=== PATIENT | female | born 1945 | race Caucasian/White ===

== ENCOUNTER 2020-03-28 13:21 | Emergency (ER) | payer MEDICARE, SELFPAY ==
[2020-03-28 14:43] VITALS: BP 114/62; PULSE 82; RESP 19; TEMP 36.6; O2SAT 98; BMI 23.3
--- NOTE | 2020-03-28 14:46 | HMH.EDUTC ---
[facility] [place] Disposition Clinical Impression: Low back pain Qualifiers: Chronicity: unspecified Back pain laterality: left Sciatica presence: with sciatica Sciatica laterality: sciatica of left side Qualified Code(s): M54.42 - Lumbago with sciatica, left side Disposition: Home, Self-Care Condition on Discharge: Good Instructions: DI for Chronic Pain -- Adult, DI for Low Back Pain, Low Back Pain, Etodolac Additional Instructions: *Etodolac as prescribed with meal as needed for pain/inflammation *Not additional anti-inflammatory like motrin, aleve, advil with the above amount of Etodolac. You can still take Tylenol every 4 hours as needed if you need something else for pain *Ice 20 minutes every 2 hours for the first 48 hours after the initial injury followed by moist heat every 20 minutes 3-4 times a day to affected area. *Keep this area active, no movement leads to more stiffness, However take it easy and avoid heavy lifting pushing or pulling *Follow up with you family doctor if no improvement for further treatment Return if needed Straight to ER if any life threatening symptoms, loss of control of bowel or bladder Prescriptions: Etodolac [Etodolac 200mg Cap*] 200 mg PO Q8H PRN #9 cap PRN Reason: Moderate Pain Transmission Status: Pending to [id number] Referrals: PCP,No [Primary Care Provider] - Time of Disposition: 15:47 Medical Decision Making - Junior Inquiry Pt receiving controlled substance: No Junior was queried for this patient: No Vital Signs: 03/28/20 14:43 Temperature 97.8 F Temperature Source Oral Pulse Rate [Right Brachial] 82 Respiratory Rate 19 Blood Pressure [Right Arm] 114/62 Blood Pressure Mean [Right Arm] 79 Blood Pressure Source [Right Arm] Automatic Cuff Blood Pressure Position [Right Arm] Sitting 02 Sat by Pulse Oximetry 98 Oxygen Delivery Method Room Air Orders (Tests/Meds): ED MEDICATIONS Discontinued Medications Generic Name Dose Route Start Last Admin Trade Name Freq PRN Reason Stop Dose Admin Methylprednisolone Sodium Succinate 125 mg 03/28/20 15:23 03/28/20 15:27 Methylprednisolone Sod Succ 125mg Vial IM 03/28/20 15:24 125 mg ONCE ONE Administration - Radiology Data #1 Image(s): L-Spine Image Reviewed: Yes I have reviewed radiologist's interpretation Multilevel lumbar spondylosis with scoliosis with mild wedging of L4 which may be slightly greater compared to the previous exam. No obvious retropulsion. [facility] HPI - General Stated complaint: pain in lower lumbar, no accident Time Seen by Provider: 03/28/20 14:50 Mode of Arrival: Ambulatory Source of Information: Patient Limitations: No Limitations Description of Symptoms (Recalled from Triage Doc. by RN): PATIENT C/O PAIN IN LEFT HIP AND LEG SINCE LAST NIGHT. NO KNOWN INJURY HEENT Symptoms (Recalled from RN notes): No Resp Symptoms (Recalled from RN notes): No Skin Symptoms (Recalled from RN notes): No MS Symptoms (Recalled from RN notes): Yes Functional Status (Recalled from RN notes): WNL - History of Present Illness Provider Complaint: Jared states that she has chronic lower back pain States that last night it started moving into her left buttock area and hip States that it was an achy like feeling States that she took tylenol and it didnt help States that today it was still hurting and she wasnt sure if it was her arthritis or not so she come in to get it checked Denies known injury Denies loss of control of bowel and bladder - Related Data Previous Rx's Medication Instructions Recorded Etodolac [Etodolac 200mg Cap*] 200 mg PO Q8H PRN #9 cap 03/28/20 Allergies Allergy/AdvReac Type Severity Reaction Status Date / Time No Known Allergies Allergy Verified 03/28/20 14:46 - Worker's Comp Is this a Worker's Comp case?: No [facility] History - Hepatitis A Screen Drug use history?: No High risk sexual behaviors?: No History of sexually transmitted infection?: No Curr
--- NOTE | 2020-03-28 14:51 | XR_ITS ---
PROCEDURE: XR LUMBAR SPINE 2-3V CLINICAL INDICATION: PAIN Low back pain COMPARISON: CR LS5 LUMBAR SPINE 5 VIEWS from 04/23/2016 FINDINGS: There is mild lumbar scoliosis convex right. Degenerative disc disease is present at L2-L3 L3-L4 L4-5 and L5-S1. There is 3 mm anterolisthesis of L3. There is mild wedging of L4 which may be slightly greater when compared to 04/23/2016 anterior osteophytes are present at multiple levels. Facet arthritic changes are present at the lumbosacral junction. Other findings:None. IMPRESSION: Multilevel lumbar spondylosis with scoliosis with mild wedging of L4 which may be slightly greater compared to the previous exam. No obvious retropulsion. Dictated by: Gaurav Petty MD 03/28/2020 15:36 Gaurav Petty MD in [place] 03/28/2020 15:36
[2020-03-28 15:52] VITALS: BP 114/62; PULSE 82; RESP 19; TEMP 36.6
== END 2020-03-28 15:55 | disposition home or self-care (01) ==
PROVIDERS: Emergency Provider Nurse Practitioner
DX: M54.42 Lumbago with sciatica, left side (principal); E78.5 Hyperlipidemia, unspecified; F17.210 Nicotine dependence, cigarettes, uncomplicated
CPT/HCPCS: G0463; 72100; 96372; 99202

== ENCOUNTER 2020-04-03 15:41 | Emergency (ER) | payer MEDICARE, SELFPAY ==
[2020-04-03 15:43] VITALS: BP 106/57; PULSE 91; RESP 19; TEMP 36.7; O2SAT 97; BMI 23.3
--- NOTE | 2020-04-03 15:51 | HMH.EDGENADL ---
ED Disposition Clinical Impression: Shingles Qualifiers: Herpes zoster complications: without complications Qualified Code(s): B02.9 - Zoster without complications Disposition: Home, Self-Care Condition on Discharge: Good Additional Instructions: Take meds as prescribed. Use Tylenol 3's for pain. Do not operate heavy machinery or drink alcohol while taking Tylenol 3's. Immediate return if worsening pain, spread of rash, vision/hearing changes, systemic signs of illness, or other new concerning symptoms prior to following up with your doctor within several days for recheck. Prescriptions: Acyclovir [Acyclovir 800mg tab] 800 mg PO 5XDAY 7 Days #35 tab Transmission Status: Pending to [id number] Referrals: PCP,No [Primary Care Provider] - - Critical Care Critical Care Time: No Attestation: On 04/03/20, the high probability of a clinically significant, sudden or life threatening deterioration of the following system(s) required my full and direct attention, intervention and personal management. The time I documented below is in addition to time spent performing reported procedures but includes the following listed in this critical care notation. Medical Decision Making - Medical Records Medical records reviewed: Yes: I reviewed the patient's medical records. - Mari Inquiry Pt receiving controlled substance: No Medical Decision Narrative: Patient presents with rash. At this time, rash is blanchable throughout with negative Nikolsky sign. Patient is well-appearing, nontoxic. There is concern for dermatitis versus shingles. No signs of herpes zoster ophthalmicus or otic is on exam. There appears to be just 1 maybe 2 dermatomal distributions noted to patient's left thigh. At this time, patient's HPI does fit with the clinical presentation of shingles. Patient will be placed on acyclovir and be sent home with Tylenol 3 to take for pain. I did try to check patient's MARI score but inquiry unsuccessful. Very low suspicion for any opioid abuse. She will take meds as prescribed and follow-up with her doctor in 24 to 48 hours for recheck. She verbalizes her understanding agrees. She will immediately return if any hearing changes, vision changes, spread of rash, worsening pain, systemic signs of illness, or other new concerning symptoms. Assessment: Shingles Disposition: Home on antivirals with close follow-up General Adult HPI - General Stated complaint: rash left thigh Time Seen by Provider: 04/03/20 15:51 - History of Present Illness HPI narrative: Patient is a 74-year-old healthy female presenting with left thigh pain and rash. Patient states last week she presented to urgent care and was treated with a steroid shot for rash noted to her left thigh. Since then the rash has spread and she states it wraps around her left thigh. She endorses a burning sensation to her skin that has not been relieved when she takes Tylenol and Motrin at home. No facial involvement, vision changes, and hearing impairment. She is otherwise healthy without known allergies. No chest pain, shortness of breath, nausea/vomiting. Again, the pain is a burning, constant pain. - Related Data Previous Rx's Medication Instructions Recorded Etodolac [Etodolac 200mg Cap*] 200 mg PO Q8H PRN #9 cap 03/28/20 Acyclovir [Acyclovir 800mg tab] 800 mg PO 5XDAY 7 Days #35 tab 04/03/20 Allergies Allergy/AdvReac Type Severity Reaction Status Date / Time No Known Allergies Allergy Verified 03/28/20 14:[address] [facility] History - Hepatitis A Screen Attestation statement:: This patient has been screened for Hepatitis A risk factors. - Social History Smoking Status: Current every day smoker Tobacco Type: cigarettes # Packs/Day (cigarettes): 1 Alcohol Intake: never Occupational Status: other ROS Obtained: Yes All systems reviewed & no additional complaints Physical Exam - General General appearance: alert, in no
[2020-04-03 16:20] VITALS: BP 110/87; PULSE 87; RESP 18; TEMP 36.7; O2SAT 100
== END 2020-04-03 16:21 | disposition home or self-care (01) ==
PROVIDERS: Emergency Provider Emergency Medicine
DX: B02.9 Zoster without complications (principal); F17.210 Nicotine dependence, cigarettes, uncomplicated
CPT/HCPCS: 99281

== ENCOUNTER → 2020-04-18 18:04 | Outpatient (CLI) | payer MEDICARE, SELFPAY ==
[2020-04-18 19:30] LABS: Basophils # 0.1 K/mm3 (0-0.2); Basophils % 0.8 % (0.1-2.0); Eosinophils # 0.1 K/mm3 (0.0-0.4); Eosinophils % 1.4 % (0.1-12.0); Hematocrit 48.1 % (37.0-47.0); Hemoglobin 15.9 g/dL (12.2-16.2); Lymphocytes # 2.1 K/mm3 (0.7-4.5); Lymphocytes % 24.2 % (10-50); Mean Corpuscular HGB Conc 33.1 g/dL (31.8-35.4); Mean Corpuscular Hemoglobin 33.2 pg (27.0-31.2); Mean Corpuscular Volume 100.5 fl (81-99); Mean Platelet Volume 9.4 fl (7.4-10.4); Monocytes # 0.5 K/mm3 (0.1-1.0); Monocytes % 5.7 % (1.7-9.3); Neutrophils # 5.9 K/mm3 (1.8-7.8); Platelet Count 525 K/mm3 (142-424); Red Blood Count 4.79 M/mm3 (4.20-5.40); Red Cell Distribution Width 14.1 % (11.5-17.5); White Blood Count 8.7 K/mm3 (4.8-10.8)
[2020-04-18 19:37] LABS: Alanine Aminotransferase 17 U/L (12-78); Albumin Level 4.4 g/dl (3.5-5.0); Albumin/Globulin Ratio 1.3 (1.1-1.8); Alkaline Phosphatase 132 U/L (38-126); Aspartate Amino Transferase 33 U/L (14-36); Bilirubin,Total 0.7 mg/dl (0.2-1.3); Blood Urea Nitrogen 19 mg/dl (7-17); Calcium 9.9 mg/dl (8.4-10.2); Carbon Dioxide 27 mmol/L (22.0-30.0); Chloride 105 mmol/L (98-107); Chol/HDL Ratio 3.9 (1-3.5); Cholesterol 243 mg/dl (140-200); Estimated Glomerular Filt Rate 70 ml/min (>60); GFR (African American) 84 ML/MIN (>60); Globulin 3.5 g/dL (1.3-3.2); Glucose 90 mg/dl (74-100); HDL Cholesterol 63 mg/dl (40-60); Sodium 140 mmol/L (136-145); Total Protein,Serum 7.9 g/dl (6.3-8.2); Triglycerides 117 mg/dl (30-150); VLDL Cholesterol 23 mg/dL (0-40)
[2020-04-18 19:48] LABS: Direct LDL Cholesterol 144.11 mg/dL (100-129)
[2020-04-18 19:55] LABS: T4 (Thyroxine) 7.8 ug/dl (5.53-11.0)
[2020-04-18 19:56] LABS: 25-OH Vitamin D, Total 21.9 ng/mL (30-100)
[2020-04-18 20:08] LABS: Thyroid Stimulating Hormone 1.55 uIU/mL (0.465-4.68)
== END ==
PROVIDERS: Visit Provider Emergency Medicine
DX: E03.9 Hypothyroidism, unspecified (principal); E55.9 Vitamin D deficiency, unspecified; M54.5 Low back pain
CPT/HCPCS: 80053; 80061; 82306; 84436; 84443; 85025

== ENCOUNTER → 2020-04-26 08:15 | Outpatient (CLI) | payer MEDICARE, SELFPAY ==
--- NOTE | 2020-04-26 08:15 | MM_ITS ---
PROCEDURE: MM DIG SCREENING MAMM BI W/CAD Referring Doctor: Yobany Soto Patient Age:74Y CLINICAL INDICATION: Routine breast Cancer Screening the 74-year-old. No hormones. No complaints. Noncontributory family history. COMPARISON: MG DIGMAMMDX MAMMOGRAM DX-ASSET MANAGEMENT COORDINATOR N/C from 04/21/2001 MG DIGMAMMS MAMMOGRAM SCREEN-ASSET MANAGEMENT COORDINATOR N/C from 10/06/2001 MG DMSB DIGITAL MAMM-SCREEN BILATERAL from 08/13/2011 TECHNIQUE: Standard CC and MLO images were obtained. R2 CAD reviewed. Bilateral digital breast tomosynthesis included. FINDINGS: Moderate density breast. No suspicious calcifications. No new suspicious or dominant mass. Mole markers bilaterally. Right and left breast appear stable with no new areas of concern. Bilateral follow-up in 1 year recommended IMPRESSION: Stable bilateral mammogram No new areas of concern, bilateral follow-up 1 year recommended BI-RAD Category: 1 Negative FOLLOW-UP: 1YR 1 Year Follow-up (A letter has been sent to the patient regarding results of the study.) Dictated by: Bon Cates MD 04/27/2020 10:25 Bon Cates MD in [place] 04/27/2020 10:25
== END ==
PROVIDERS: PCP Family Medicine; Visit Provider Emergency Medicine
DX: Z12.31 Encounter for screening mammogram for malignant neoplasm of breast (principal)
CPT/HCPCS: 77063; 77067

== ENCOUNTER 2020-11-22 16:56 | Emergency (ER) | payer MEDICARE, SELFPAY ==
[2020-11-22 18:00] VITALS: BP 129/99; PULSE 66; RESP 20; TEMP 36.7; O2SAT 97; BMI 22.7
[2020-11-22 18:24] LABS: Apearance,Urine Cloudy (Clear); Color,Urine Dark Yellow (Yellow); PH,Urine 5.5 (5.0-8.5); Specific Gravity, Urine 1.025 (1.005-1.030)
[2020-11-22 18:25] LABS: Bilirubin,Urine Negative (Negative); Blood, Urine Trace (Negative); Glucose,Urine (UA) Negative (Negative); Ketones,Urine Negative (Negative); Protein,Urine Negative (Negative); UTC Leukocyte Esterase,Urine 1+ (Negative); UTC Nitrate,Urine Positive (Negative); Urobilinogen,Urine 0.2 EU/dl (0.2)
--- NOTE | 2020-11-22 18:33 | HMH.EDUTC ---
[facility] [place] Clinical Impression: UTI (urinary tract infection) Qualifiers: Urinary tract infection type: site unspecified Hematuria presence: with hematuria Qualified Code(s): N39.0 - Urinary tract infection, site not specified Disposition: Home, Self-Care Condition on Discharge: Good Instructions: Urinary Tract Infection, Low Back Pain, DI for Low Back Pain, DI for Urinary Tract Infection (UTI) Additional Instructions: *Increase fluids. Water not Soda or Tea *Start antibiotic immediately and be sure to take as ordered for the FULL length of time although you should start to see improvement over the next 48 hours *Pyridium as needed Remember this medication will turn your urine [place]. This is normal but it will stain what ever it gets on *You should not use Pyridium for more than 48 hours. If so , follow up with your primary physician to review urine culture and ensure that antibiotic is adequate for infection *Be SURE to follow up anytime for new or worsening symptoms with your family doctor. AND in 48 hours for urine culture results with your family doctor, if you do not have a doctor then you may call back to the [facility] for urine culture results and further treatment. We do recommend that you choose and establish care with a Primary Care Physician. AND follow up with them in 10-14 days to repeat UA to ensure infection is resolved and blood no longer present *Be sure to let your PCP know that we sent urine cultures from the [facility] so they can follow up to ensure that you area the on the correct antibiotic Call your doctor office and make appointment for 48 hours (2 days from today) to follow up and get the results of your urine culture and further treatment Prescriptions: cephALEXin [cephALEXin 500mg capsule*] 500 mg PO BID 7 Days #14 cap Transmission Status: Received by [id number] Phenazopyridine HCl [Pyridium 200mg Tablet] 200 pow PO TID #6 tab Transmission Status: Received by [id number] Referrals: Yobany Soto MD [Primary Care Provider] - As needed Time of Disposition: 18:45 Medical Decision Making - Junior Inquiry Pt receiving controlled substance: No Juinor was queried for this patient: No Vital Signs: 11/22/20 18:00 11/22/20 18:54 Temperature 98.0 F 98.0 F Temperature Source Oral Pulse Rate 66 Pulse Rate [Right Brachial] 66 Respiratory Rate 20 20 Blood Pressure 129/99 H Blood Pressure [Right Arm] 129/99 H Blood Pressure Mean [Right Arm] 109 Blood Pressure Source [Right Arm] Automatic Cuff Blood Pressure Position [Right Arm] Sitting 02 Sat by Pulse Oximetry 97 Oxygen Delivery Method Room Air - Lab Data Lab results reviewed: Yes: I reviewed the patient's lab results. Lab Results 11/22/20 18:09: Urine Color Dark yellow, Urine Appearance Cloudy, Urine pH 5.5, Ur Specific [place] 1.025, Urine Protein Negative, Urine Glucose (UA) Negative, Urine Ketones Negative, Urine Blood Trace, Urine Nitrate Positive A, Urine Bilirubin Negative, Urine Urobilinogen 0.2, Ur Leukocyte Esterase 1+ A Orders (Tests/Meds): ED MEDICATIONS Discontinued Medications Generic Name Dose Route Start Last Admin Trade Name Freq PRN Reason Stop Dose Admin Cephalexin HCl 500 mg 11/22/20 18:45 11/22/20 18:53 Cephalexin 500mg Capsule PO 11/22/20 18:46 500 mg ONCE ONE Administration Protocol ORDERS Category Date Time Status Urine Culture Stat Micro 11/22/20 18:10 Received Medical Decision Narrative: Discussed with patient results of her Urinalysis and recommended Lspine xray and xray of hip patient declined States that she will get treated for the UTI and follow up with Family Doctor if pain in lower back/hip if it does not improve after treatment for the UTI [facility] [place] - General Stated complaint: Right Hip,back, pain Time Seen by Provider: 11/22/20 18:33 Mode of Arrival: Ambulatory Source of Information: Patient Limitations: No Limitations Description of
[2020-11-22 18:54] VITALS: BP 129/99; PULSE 66; RESP 20; TEMP 36.7; O2SAT 97
--- NOTE | 2020-11-24 09:44 | PC.NURSE ---
PATIENT NOTIFIED OF URINE CULTURE RESULTS. PATIENT INFORMED TO STOP CURRENT ANTIBIOTIC AND START THE NEW ONE THAT WAS SENT IN FOR HER AND TO FOLLOW UP WITH PCP. PATIENT VERBALIZED UNDERSTANDING.
== END 2020-11-22 18:57 | disposition home or self-care (01) ==
PROVIDERS: Emergency Provider Nurse Practitioner; PCP Emergency Medicine
DX: N30.00 Acute cystitis without hematuria (principal); E78.5 Hyperlipidemia, unspecified
CPT/HCPCS: G0463; 81003; 87086; 87088; 87186; 99202

== ENCOUNTER → 2020-12-16 14:40 | Outpatient (CLI) | payer MEDICARE, SELFPAY ==
--- NOTE | 2020-12-16 14:40 | CT_ITS ---
PROCEDURE: CT LUNG SCREENING CLINICAL INDICATION: lung cancer screening Current smoker 124 pack year smoking history No prior COMPARISON: CT LSWO CT LUMBAR SPINE W/O CONTRAST from 06/13/2016 CR XR LUMBAR SPINE 2-3V from 03/28/2020 TECHNIQUE: The exam was performed on a GE Light Speed [address] scanner using 2.90 mGy CTDI. A low dose helical CT CHEST was performed on a multi-detector scanner. All CT scans at the facility use one or more dose reduction, viz: automated exposure control, ma/kV adjustment per patient size (including targeted exams where dose is matched to indication, i.e. head), or iterative reconstruction technique. The LDCT was performed in a facility that meets the criteria for the screening program. Data regarding this exam was submitted to ACR which is an approved registry. The order for this exam indicates that it came as a result of a lung cancer screening counseling shard decision-making visit that included all the elements required of such a visit including smoking cessation. The radiologist interpreting this exam meets the CMS criteria for the LDCT lung cancer screening program. The exam is reported using the Lung-RADS classification scale and reported to the ACR registry. NOTE: This study was performed for the specific purposes of lung cancer screening and is not an alternative to diagnostic chest CT. RADIATION DOSE: CTDI vol(CT dose Index-volume) = 2.90mG DLP (Dose Length Product) = 97.68 mGcm FINDINGS: Centrilobular and paraseptal emphysema with scattered areas of scarring. 3 mm nodular opacity right upper lobe inferiorly. No suspicious pulmonary nodules apparent. OTHER FINDINGS: Chronic wedge compression changes of T12 with kyphosis and minimal retropulsion of the posterior superior aspect of T12 by 3 mm. There is aneurysmal dilatation of the ascending aorta at 4.5 cm. Coronary artery calcifications are present. 10 mm nodular opacity left adrenal gland possibly due to an adenoma and probably unchanged from 06/13/2016 IMPRESSION: Lung-RADS Category 2 Benign Appearance or Behavior Follow-up: Continue annual screening with LDCT in 12 months Also noted is a 4.5 cm ascending aortic aneurysm. Dictated by: Gaurav Petty MD 12/20/2020 10:08 Gaurav Petty MD in [place] 12/20/2020 10:08
== END ==
PROVIDERS: PCP Emergency Medicine; Visit Provider Emergency Medicine
DX: Z87.891 Personal history of nicotine dependence (principal); Z12.2 Encounter for screening for malignant neoplasm of respiratory organs
CPT/HCPCS: 71271

== ENCOUNTER → 2021-01-03 09:10 | Outpatient (CLI) | payer MEDICARE, SELFPAY ==
--- NOTE | 2021-01-03 09:10 | XR_ITS ---
PROCEDURE: XR DEXA AXIAL SKELETON CLINICAL HISTORY: fracture in t12 vertebrae COMPARISON: CR BONE3 BONE DENSITOMETRY(HIP:LT SPINE from 01/04/2017 FINDINGS: The right hip BMD is 0.614 with a T-score of -2.7. The left hip BMD is 0.599 with a T-score of -2.8. The lumbar spine BMD is 0.848 with a T-score of -1.8. 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 Based on these results a follow-up exam is recommended in 2 year. Dictated by: Anjelica Mayen 01/03/2021 14:57 Anjelica Mayen in [place] 01/03/2021 14:57
== END ==
PROVIDERS: PCP Emergency Medicine; Visit Provider Emergency Medicine
DX: M81.0 Age-related osteoporosis without current pathological fracture (principal)
CPT/HCPCS: 77080

== ENCOUNTER → 2021-02-03 10:05 | Outpatient (CLI) | payer MEDICARE, SELFPAY ==
--- NOTE | 2021-02-03 | CA_ITS ---
APPROVED REPORT Exam: Pharmacologic Technologist: Yue Otto, Ht: 5 ft 7 in Wt: 142 lbs BSA: 1.75 m2 HR: 65 bpm BP: 123/69 mmHg Medical History Medical History: Hyperlipidemia Medications: Asa,,,,, Lipitor,,,,, FOsAMAX,,,,, Cardiac Risk Factors: Smoking, Hyperlipidemia Stress Test Details Test: LEXISCAN HR Resting HR: 60 bpm Max Heart Rate (APMHR): 143.043216 bpm Max HR Achieved: 87 bpm Target HR (85% APMHR): 121.743696 bpm % of APMHR: 60.84 Recovery HR: 72 bpm BP Resting BP: 123/69 mmHg Max BP: 141/63 mmHg Recovery BP: 133.0/62.0 mmHg ECG Clinical Exercise duration: 03:59 min Highest Stage Achieved: Stress ECG Conclusion LEXISCAN PORTION COMPLETED.PT C/O SHORTNESS OF BREATH DURING PEAK INFUSION RESOLVED IN RECOVERY. NO CP. OCC PVC. OCC PAC. LESS THAN 1.5MM ST DEPRESSION. IMAGES TO FOLLOW. Test Summary REST 06:16 . . 60 . 123/ 69 . . Stage 1 . . . . . . . Myoview Injected Stage 1 01:00 . . 83 . . . . Stage 2 01:00 . . 79 . . . . Stage 3 01:00 . . 77 . 128/ 66 . . Stage 4 00:59 . . 76 . 133/ 67 . Stop exercise at 03:59 RECOVERY 01:00 . . 77 . 129/ 63 . . RECOVERY 02:00 . . 74 . 141/ 63 . . RECOVERY 03:00 . . 68 . 132/ 64 . . RECOVERY 03:54 . . 70 . 133/ 62 . . Electronically signed by : Melvin Ibarra MD 02/05/2021 08:49:44
--- NOTE | 2021-02-03 10:06 | CA_ITS ---
APPROVED REPORT EXAM: Comprehensive 2D, Doppler, and color-flow Echocardiogram Aco Coordinator: Teresa Manzo RVT Ht: 5 ft 7 in Wt: 142lbs BSA: 1.75 BP: 138/74 mmHg Indications: CP,THORAIC AA,CAD,SMOKER,MURMUR,HTN,HLD 2D Dimensions LVOT 1.88 cm (M/F) 1.5-2.5 LA Volume 39.50 mL LA Volume Index 22.70 mL/m2 (M/F) 16-34 M-Mode Dimensions RVDd 2.24 cm (0.9-2.6) LA Diam 4.25 cm (1.9-4.0) LVDd 4.51 cm (3.5-5.7) Ao Diam 2.78 cm (2.0-3.7) LVDs 2.81 cm (3.5-5.7) IVSd 1.14 cm (0.6-1.1) PWd 0.83 cm (0.6-1.1) EF (Teich) 67.90% FS 37.70% EDV (Teich) 92.90 mL TAPSE 1.98 (<1.7) ESV (Teich) 29.80 mL LV Diastology E Decel Time 297.00 (160-240 msec) E/A Ratio 1.0 MED E' 7.80 (< 7 cm/sec) E'/MED E' Ratio 14.50 (>14) LAT E' 10.90 (<10 cm/sec) E/LAT E' Ratio 10.38 (>14) Aortic Valve LVOT Max 96.00 (70-110 cm/s) LVOT VTI 23.55 cm AoV Peak Jeffrey. 160.00 (50-130 cm/s) AI PHT 654.00 ms AO Peak GR. 10.30 mmHg AO Mean GR. 5.30 (<5 mmHg) AO VTI 33.53 (18-25 cm) MAURA (VTI) 1.95 (2.5-4.5 cm2) Mitral Valve MV E Max Jeffrey. 113.00 (40-130 cm/s) MV A Velocity 117.00 (40-130 cm/s) E/A Ratio 0.97 MV Decel. Time 297.00 (160-240 ms) MV PHT 87.00 ms Pulmonary Valve PV Peak Velocity 69.00 (50-150 cm/s) Tricuspid Valve TR P. Velocity 299.00 cm/s RAP Estimate 10.00 mmHg RVSP 45.70 mmHg Left Ventricle Left atrium is mildly enlarged, left ventricle is normal size, mild concentric left ventricular hypertrophy, visually estimated ejection fraction 55% with no regional wall motion abnormality, grade 2 diastolic dysfunction seen with tissue Doppler evidence of raise left atrial pressure. Right Ventricle Right atrium and right ventricle are normal size and contractility. Aortic Valve Aortic valve is thickened and calcified without aortic stenosis, there is mild aortic insufficiency. Mitral Valve Mitral valve leaflets are minimally thickened, there is mild mitral regurgitation. Tricuspid Valve Tricuspid valve grossly normal, there is mild tricuspid regurgitation, tricuspid regurgitation jet velocity is inadequate for calculation of the right ventricular systolic pressure. Pulmonic Valve Pulmonic valve is poorly visualized. Great Vessels Aortic root is normal size. Pericardium No significant pericardial effusion noted. Conclusion 1. Mildly enlarged left atrium, normal left ventricular size, mild concentric left ventricular hypertrophy, visually estimated ejection fraction 55% with no regional wall motion abnormality, grade 2 diastolic dysfunction seen with tissue Doppler evidence of raise left atrial pressure. 2. Mild aortic, mild mitral and tricuspid regurgitation. 3. No significant pericardial effusion noted. Electronically signed by : Melvin Ibarra MD 02/03/2021 12:31:58
--- NOTE | 2021-02-03 11:01 | NM_ITS ---
APPROVED REPORT Exam: Nuclear Stress Test Indication: chest pain Patient Location: Outpatient Stress Tech: Yue BURKS Tech:Danielle Moon JOSEPH RT(R)(N) Ht: 5 ft 7 in Wt: 142 lbs Bra Size: 40c HR: 60 bpm BP: 123/69 mmHg BSA: 1.75 m2 BMI: 22.2 History: chest pain Procedure: Patient received a 0.4 mg of intravenous Lexiscan, resting heart rate 60 bpm, resting blood pressure 123/69 mmHg, with Lexiscan maximum heart rate achived was 87 bpm which is Less than 85 % of the maximum predicted heart rate and blood pressure was 141/63 mmHg. With Lexiscan, patient denied any complaint of chest pain. Electrocardiogram Resting electrocardiogram showed sinus rhythm, with Lexiscan there is less than 1.[address] segment depression from the baseline EKG. The EKG portion of the Lexiscan is nondiagnostic. Cardiac Stress and Resting SPECT Images: Cardiac Stress and Resting SPECT images were obtained using technetium 99m Myoview 31.4 mCi stress and 10.61 mCi at rest. Gated SPECT for analysis of segmental wall motion and calculation of the ejection fraction also done. Prone images were also obtained. Cardiac stress and resting SPECT images show uniform myocardial activity without segmental perfusion abnormality, computer derived ejection fraction is 56% with no regional wall motion abnormality, right ventricle is normal size and contractility. Conclusion: 1. The EKG portion of the Lexiscan is nondiagnostic. 2. No scintigraphic evidence of reversible ischemia seen, computer derived ejection fraction is 56% with no regional wall motion abnormality, right ventricle is normal size and contractility. 3. Normal Lexiscan Myoview study. Electronically signed by : Melvin Ibarra MD 02/05/2021 09:00:08
== END ==
PROVIDERS: PCP Emergency Medicine; Visit Provider Internal Medicine
DX: E78.5 Hyperlipidemia, unspecified (principal); I10 Essential (primary) hypertension; I25.10 Atherosclerotic heart disease of native coronary artery without angina pectoris; I71.2 Thoracic aortic aneurysm, without rupture; Z72.0 Tobacco use
CPT/HCPCS: 78452; 93017; 93306; A9502; J2785

== ENCOUNTER → 2021-02-17 09:56 | Outpatient (CLI) | payer MEDICARE, SELFPAY ==
--- NOTE | 2021-02-17 09:56 | CA_ITS ---
APPROVED REPORT Inspector Of Dredging: ADALID Laterality: Bilateral Study Quality: Good Indications: carotid bruit on exam, coronary artery calcification Risk Factors Hyperlipidemia Smoking Doppler Spectral Velocity Analysis ECA (R) 91.80/14.80 cm/s ECA (L) 122.50/21.40 cm/s dICA (R) 70.00/23.80 cm/s dICA (L) 56.50/19.90 cm/s Selin (R) 57.80/20.50 cm/s Selin (L) 79.00/25.00 cm/s pICA (R) 64.90/19.30 cm/s pICA (L) 64.90/25.00 cm/s dCCA (R) 74.50/24.40 cm/s dCCA (L) 75.80/21.20 cm/s pCCA (R) 70.60/18.60 cm/s pCCA (L) 50.50/14.10 cm/s Vert (R) 34.60/9.00 cm/s Vert (L) 41.70/13.50 cm/s ICA/CCA 0.94 ICA/CCA 1.04 Findings Study suggests less than 20% stenosis of the right interal carotid artery. Study suggets less than 20% stenosis of the left internal carotid artery. Duplex evaluation demonstrates antegrade flow of the bilateral Vertebral Arteries. B-Mode Ultrasound demonstrates mild intraluminal plaque in the bilateral internal Carotid Arteries. Multiple nodules seen in the patient's thyroid. Conclusion Study suggests less than 20% stenosis of the right interal carotid artery. Study suggets less than 20% stenosis of the left internal carotid artery. Duplex evaluation demonstrates antegrade flow of the bilateral Vertebral Arteries. B-Mode Ultrasound demonstrates mild intraluminal plaque in the bilateral internal Carotid Arteries. Multiple nodules seen in the patient's thyroid measuring up to 1.4cm on the left consistent with cysts. Electronically signed by : Gaurav Petty MD 02/21/2021 16:14:53
== END ==
PROVIDERS: PCP Emergency Medicine; Visit Provider Urology
DX: R09.89 Other specified symptoms and signs involving the circulatory and respiratory systems (principal)
CPT/HCPCS: 93880

== ENCOUNTER → 2021-03-30 15:20 | Outpatient (CLI) | payer MEDICARE, SELFPAY ==
--- NOTE | 2021-03-30 15:20 | US_ITS ---
PROCEDURE: US THYROID CLINICAL INDICATION: hx nodules COMPARISON: No exams were available for comparison FINDINGS: Right lobe: 3.8 x 1.4 x 1.7 cm. 8 x 6 mm cyst is present in the upper pole. 3 mm cyst with a hyperechoic focus noted inferiorly noted in the mid polar region. In the lower pole there is a 10 x 5 mm mixed cystic and solid lesion. Also in the lower pole there is a 5 mm cyst. Left lobe: 3.7 x 1.5 x 1.7 cm. 10 mm x 13 mm cyst is present in the upper pole. 2 mm cyst in the lower pole. Isthmus: Unremarkable Additional findings: IMPRESSION: Multiple thyroid cysts as detailed above. There is a mixed cystic and solid lesion in the lower pole on the right at 10 x 5 mm. TR level 3. Suggest 12 month follow-up. Dictated by: Gaurav Petty MD 03/31/2021 07:53 Gaurav Petty MD in [place] 03/31/2021 07:53
== END ==
PROVIDERS: PCP Emergency Medicine; Visit Provider Otolaryngology
DX: E04.1 Nontoxic single thyroid nodule (principal)
CPT/HCPCS: 76536

== ENCOUNTER 2021-05-16 14:51 | Emergency (ER) | payer MEDICARE, SELFPAY ==
--- NOTE | 2021-05-16 15:55 | XR_ITS ---
PROCEDURE INFORMATION: Exam: XR Chest Exam date and time: 05/16/2021 3:55 PM Age: 75 years old Clinical indication: Cough TECHNIQUE: Imaging protocol: XR of the chest. Views: 2 views. COMPARISON: CT LUNG SCREENING 12/16/2020 2:49 PM FINDINGS: Lungs: Emphysematous changes. Faint infiltrate in the mid to upper right lung. Lung hyperinflation. Pleural spaces: Unremarkable. No pleural effusion. No pneumothorax. Heart/Mediastinum: Unremarkable. No cardiomegaly. Bones/joints: Old T12 vertebral body compression deformity. IMPRESSION: Faint right lung infiltrate may represent pneumonia.
--- NOTE | 2021-05-16 16:02 | HMH.EDUTC ---
[facility] [place] Disposition Clinical Impression: COPD exacerbation Disposition: Home, Self-Care Condition on Discharge: Good Instructions: DI for Chronic Obstructive Pulmonary Disease, DI for COVID-19 (Suspected or Confirmed ), Preventing the Spread of Coronavirus Discharge Instructions Additional Instructions: Drink plenty of fluids. Take tylenol or ibuprofen for pain or fever. Take the medications as directed. Follow up with your regular doctor. GO TO THE ER FOR ANY WORSENING SYMPTOMS Quarantine until you know the results of your covid-19 test. If it is positive, the health department should call you and give you further instructions about your length of Quarantine and other things. Notify your school or workplace of your results and follow their instructions regarding return to work/school. Prescriptions: Benzonatate [Benzonatate 100mg cap] 100 mg PO TIDP PRN #30 cap PRN Reason: Cough [facility]: [facility] predniSONE [Deltasone 10mg tablet] 10 mg PO DAILY 9 Days #21 tab Transmission Status: Received by [facility] levoFLOXacin [Levaquin 500mg tab] 500 mg PO DAILY #7 tab Transmission Status: Received by [facility] guaiFENesin [Mucinex 600mg tablet] 1 - 2 tab PO BIDP PRN #30 tab PRN Reason: Congestion Transmission Status: [facility] Referrals: Yobany Soto MD [Primary Care Provider] - Time of Disposition: 17:06 Medical Decision Making - Medical Records Medical records reviewed: No: I reviewed the patient's medical records. - Junior Inquiry Pt receiving controlled substance: No Vital Signs: 05/16/21 16:08 05/16/21 17:15 Temperature 97.8 F 97.8 F Temperature Source Oral Pulse Rate 93 H Pulse Rate [Left] 93 H Respiratory Rate 20 20 Blood Pressure 99/61 L Blood Pressure [Right Arm] 93/55 L Blood Pressure Mean [Right Arm] 67 02 Sat by Pulse Oximetry 92 L - Lab Data Lab results reviewed: Yes: I reviewed the patient's lab results. Lab Results 05/16/21 16:23: Strep Scn Rapid Clinic Negative Orders (Tests/Meds): ORDERS Category Date Time Status Covid-19 Nasal PCR ([facility]) Routine Lab 05/16/21 16:54 Received Strep Screen Confirmation Stat Micro 05/16/21 16:23 Received - Radiology Data #1 Image(s): Chest Image Reviewed: Yes I reviewed the patient's radiology image, Yes I have reviewed radiologist's interpretation Preliminary Findings: Abnormal PROCEDURE INFORMATION: Exam: XR Chest Exam date and time: 05/16/2021 3:55 PM Age: 75 years old Clinical indication: Cough TECHNIQUE: Imaging protocol: XR of the chest. Views: 2 views. COMPARISON: CT LUNG SCREENING 12/16/2020 2:49 PM FINDINGS: Lungs: Emphysematous changes. Faint infiltrate in the mid to upper right lung. Lung hyperinflation. Pleural spaces: Unremarkable. No pleural effusion. No pneumothorax. Heart/Mediastinum: Unremarkable. No cardiomegaly. Bones/joints: Old T12 vertebral body compression deformity. IMPRESSION: Faint right lung infiltrate may represent pneumonia. [facility] [place] HPI - General Stated complaint: chills, body aches Time Seen by Provider: 05/16/21 16:02 - History of Present Illness Provider Complaint: She c/o cough and congestion for the past 2 days. - Related Data Previous Rx's Medication Instructions Recorded aspirin 81 mg tablet,delayed 81 mg PO DAILY #30 tab 01/24/21 release furosemide 20 mg tablet 20 mg PO DAILY #30 tab 02/08/21 losartan 25 mg tablet 25 mg PO DAILY #30 tab 02/08/21 atorvastatin 10 mg tablet See Rx Instructions .ROUTE 05/01/21 .COMPLEX #90 tablet Benzonatate [Benzonatate 100mg 100 mg PO TIDP PRN #30 cap 05/16/21 cap] guaiFENesin [Mucinex 600mg tablet] 1 - 2 tab PO BIDP PRN #30 tab 05/16/21 levoFLOXacin [Levaquin 500mg 500 mg PO DAILY #7 tab 05/16/21 tab] predniSON
[2021-05-16 16:08] VITALS: BP 93/55; PULSE 93; RESP 20; TEMP 36.6; O2SAT 92; BMI 23.2
[2021-05-16 16:26] LABS: UTC Strep Screen (Rapid) Negative (Negative)
[2021-05-16 17:15] VITALS: BP 99/61; PULSE 93; RESP 20; TEMP 36.6
--- NOTE | 2021-05-17 10:44 | PC.NURSE ---
attempted to call pt with covid swab results, no answer and no voicemail set up
--- NOTE | 2021-05-17 12:35 | PC.NURSE ---
attempted to call about positive covid results, unable to reach at this time.
--- NOTE | 2021-05-17 13:07 | INFXCTL.NOTE ---
Notified patient via phone call COVID-19 (+). Instructed to quarantine for 10 days. MARIAM Grant
== END 2021-05-16 17:17 | disposition home or self-care (01) ==
PROVIDERS: Emergency Provider Nurse Practitioner Family; PCP Emergency Medicine
DX: J44.1 Chronic obstructive pulmonary disease with (acute) exacerbation (principal); R01.1 Cardiac murmur, unspecified; I10 Essential (primary) hypertension; F17.210 Nicotine dependence, cigarettes, uncomplicated; U07.1 COVID-19
CPT/HCPCS: G0463; 71046; 87880; 99202; C9803; U0003; U0005

== ENCOUNTER 2021-05-22 23:31 | Inpatient (IN) | payer MEDICARE, SELFPAY ==
[2021-05-22 23:32] VITALS: BP 117/74; PULSE 87; RESP 28; TEMP 36.3; O2SAT 76; BMI 23.2
--- NOTE | 2021-05-22 23:45 | XR_ITS ---
PROCEDURE INFORMATION: Exam: XR Chest Exam date and time: 05/22/2021 11:45 PM Age: 75 years old Clinical indication: Cough and shortness of breath; Patient HX: Covid + 05/16/2021 TECHNIQUE: Imaging protocol: XR of the chest. Views: 1 view. COMPARISON: CR XR CHEST 2V 05/16/2021 4:05 PM FINDINGS: Lungs: Hyperinflation with chronic interstitial coarsening suggesting COPD. Patchy airspace disease present throughout the peripheral right lung is new since recent prior and compatible with pneumonia. Scattered linear scarring. Pleural spaces: No pleural effusion. No pneumothorax. Heart/Mediastinum: Normal heart size. Bones/joints: Osteopenia. Mild spondylosis. Mild levoconvex thoracic curvature. IMPRESSION: 1. Multilobar pneumonia in the peripheral right lung. 2. COPD.
--- NOTE | 2021-05-22 23:48 | HMH.EDGENADL ---
ED Disposition Clinical Impression: COVID-19 Respiratory failure with hypoxia Qualifiers: Chronicity: acute Qualified Code(s): J96.01 - Acute respiratory failure with hypoxia Disposition: Admitted As Inpatient Condition on Discharge: Critical Referrals: Yobany Soto MD [Primary Care Provider] - Time of Disposition: 23:54 - Critical Care Critical Care Time: Yes Attestation: On 05/22/21, the high probability of a clinically significant, sudden or life threatening deterioration of the following system(s) required my full and direct attention, intervention and personal management. The time I documented below is in addition to time spent performing reported procedures but includes the following listed in this critical care notation. Vital system(s) involved:: Respiratory Failure My critical care processes included: Assessment & monitoring of V/S, Initial and Re-exams, Data Review/Interpretation, Coordinating Care, Medication Orders and management, Documentation Medical Decision Making - Medical Records Medical records reviewed: Yes: I reviewed the patient's medical records. - Junior Inquiry Pt receiving controlled substance: No Vital Signs: 05/22/21 23:32 05/23/21 00:00 05/23/21 00:30 Temperature 97.4 F L Temperature Source Oral Pulse Rate 77 75 Pulse Rate [Right] 87 Respiratory Rate 28 H Blood Pressure 112/78 120/74 Blood Pressure [Right Arm] 117/74 Blood Pressure Mean [Right Arm] 88 02 Sat by Pulse Oximetry 76 L 94 L 93 L Oxygen Delivery Method Room Air Nasal Cannula Nasal Cannula Nasal Cannula Oxygen Flow Rate (LPM) 4 4 05/23/21 01:00 05/23/21 01:30 05/23/21 02:00 Temperature Temperature Source Pulse Rate 75 72 71 Pulse Rate [Right] Respiratory Rate Blood Pressure 109/75 L 120/75 124/75 Blood Pressure [Right Arm] Blood Pressure Mean [Right Arm] 02 Sat by Pulse Oximetry 92 L 95 91 L Oxygen Delivery Method Nasal Cannula Nasal Cannula Nasal Cannula Oxygen Flow Rate (LPM) 4 4 4 - Lab Data Lab Results 05/23/21 00:09: WBC 8.4, RBC 4.98, Hgb 15.7, Hct 45.1, MCV 90.7, MCH 31.6 H, MCHC 34.8, RDW 13.3, Plt Count 369, MPV 9.4, Neut % (Auto) 85.6 H, Lymph % (Auto) 8.2 L, [place] % (Auto) 5.0, Eos % (Auto) 0.1, Baso % (Auto) 1.2, Neut # (Auto) 7.1, Lymph # (Auto) 0.7, [place] # (Auto) 0.4, Eos # (Auto) 0.0, Baso # (Auto) 0.1, Total Counted 100, Neutrophils % (Manual) 86 H, Lymphocytes % (Manual) 10, Monocytes % (Manual) 4, Platelet Estimate Normal, RBC Morphology Normal 05/23/21 00:09: D-Dimer 0.95 H 05/23/21 00:09: Sodium 134 L, Potassium 3.7, Chloride 103, Carbon Dioxide 28, Anion Gap 6.7, BUN 17, Creatinine 0.60, Estimated Creat Clear 49, Estimated GFR 97, Est GFR ( Amer) 117, Glucose 226 H, Calcium 8.2 L, Ferritin 504 H, Total Bilirubin 0.8, AST 54 H, ALT 33, Alkaline Phosphatase 88, C-Reactive Protein 59.8 H, Total Protein 6.9, Albumin 3.4 L, Globulin 3.5 H, Albumin/Globulin Ratio 1.0 L, Procalcitonin 0.046 Result diagrams: 05/23/21 00:09 05/23/21 00:09 Orders (Tests/Meds): ED MEDICATIONS Generic Name Dose Route Start Last Admin Trade Name Freq PRN Reason Stop Dose Admin Levofloxacin/Dextrose 750 mg in 150 mls @ 100 mls/hr 05/23/21 02:30 Levofloxacin 750mg/150ml Premix IV 06/06/21 02:29 Q24H WENDY Discontinued Medications Generic Name Dose Route Start Last Admin Trade Name Freq PRN Reason Stop Dose Admin Dexamethasone Sodium Phosphate 8 mg 05/22/21 23:47 05/23/21 00:24 Dexamethasone 4mg/Ml 1ml Vial IV 05/22/21 23:48 8 mg ONCE ONE Administration ORDERS Category Date Time Status CT angio chest PE protocol Stat Cat Scan 05/23/21 02:28 Ordered Lactic Acid Stat Lab 05/22/21 23:45 Ordered Rapid PCR Covid and Flu A/B Stat Lab 05/23/21 00:00 Received Venous Blood Gas Stat RT 05/22/21 23:45 Ordered - Radiology Data #1 Image(s): Chest Image Reviewed: Yes I reviewed the patient's radiology results, Yes I review
[2021-05-23] VITALS (17 sets, daily range): BP systolic 105–127; BP diastolic 63–78; PULSE 67–80; RESP 20–26; TEMP 36.3–36.8; O2SAT 89–96; BMI 23.1
[2021-05-23 00:26] LABS: Basophils # 0.1 K/mm3 (0-0.2); Basophils % 1.2 % (0.1-2.0); Eosinophils % 0.1 % (0.1-12.0); Hematocrit 45.1 % (37.0-47.0); Hemoglobin 15.7 g/dL (12.2-16.2); Lymphocytes # 0.7 K/mm3 (0.7-4.5); Lymphocytes % 8.2 % (10-50); Mean Corpuscular HGB Conc 34.8 g/dL (31.8-35.4); Mean Corpuscular Hemoglobin 31.6 pg (27.0-31.2); Mean Corpuscular Volume 90.7 fl (81-99); Mean Platelet Volume 9.4 fl (7.4-10.4); Monocytes # 0.4 K/mm3 (0.1-1.0); Neutrophils # 7.1 K/mm3 (1.8-7.8); Neutrophils % 85.6 % (37.0-80.0); Platelet Count 369 K/mm3 (142-424); Red Blood Count 4.98 M/mm3 (4.20-5.40); Red Cell Distribution Width 13.3 % (11.5-17.5); White Blood Count 8.4 K/mm3 (4.8-10.8)
[2021-05-23 00:36] LABS: Alanine Aminotransferase 33 U/L (12-78); Albumin Level 3.4 g/dl (3.5-5.0); Alkaline Phosphatase 88 U/L (38-126); Anion Gap 6.7 mEq/L (5-15); Aspartate Amino Transferase 54 U/L (14-36); Bilirubin,Total 0.8 mg/dl (0.2-1.3); Blood Urea Nitrogen 17 mg/dl (7-17); Calcium 8.2 mg/dl (8.4-10.2); Carbon Dioxide 28 mmol/L (22.0-30.0); Chloride 103 mmol/L (98-107); Creatinine Clearance Estimated 49 mL/min (50-200); Estimated Glomerular Filt Rate 97 ml/min (>60); GFR (African American) 117 ML/MIN (>60); Globulin 3.5 g/dL (1.3-3.2); Glucose 226 mg/dl (74-100); Potassium 3.7 mmoL/L (3.5-5.1); Sodium 134 mmol/L (136-145); Total Protein,Serum 6.9 g/dl (6.3-8.2)
[2021-05-23 00:41] LABS: C-Reactive Protein 59.8 mg/L (0-4); D-Dimer 0.95 ug/mL (0.0-0.5); MANUAL DIFFERENTIAL MANUAL DIFFERENTIAL (MANUAL DIFF)
[2021-05-23 00:55] LABS: Procalcitonin 0.046 ng/mL (0.0-2.0)
[2021-05-23 01:26] LABS: Lymphocytes % 10 % (10-50); Monocytes % 4 % (2-9); Neutrophils % 86 % (42-76); Platelet Estimate Normal; RBC Morphology Normal; Total Cells Counted 100
[2021-05-23 02:00] LABS: Influenza A, PCR Not Detected (NotDetected); Influenza B, PCR Not Detected (NotDetected)
[2021-05-23 02:28] LABS: Ferritin 504 ng/ml (11.1-264)
--- NOTE | 2021-05-23 02:28 | CT_ITS ---
PROCEDURE INFORMATION: Exam: CTA Chest With Contrast Exam date and time: 05/23/2021 2:28 AM Age: 75 years old Clinical indication: Shortness of breath; Patient HX: + covid; Additional info: Short of breath. +dimer TECHNIQUE: Imaging protocol: Computed tomographic angiography of the chest with contrast. 3D rendering (Not supervised by radiologist): MIP and/or 3D reconstructed images were created by the technologist. Radiation optimization: All CT scans at this facility use at least one of these dose optimization techniques: automated exposure control; mA and/or kV adjustment per patient size (includes targeted exams where dose is matched to clinical indication); or iterative reconstruction. Contrast material: ISOVUE 370; Contrast volume: 70 ml; Contrast route: INTRAVENOUS (IV); COMPARISON: CR XR CHEST PORTABLE 05/22/2021 11:57 PM FINDINGS: Pulmonary arteries: No large or central pulmonary embolus. A perceived nonocclusive filling defect in a subsegmental branch of the right lower lobe superior segment (series 5, image 54) appears less conspicuous on the MIP imaging and is favored to be artifact due to motion and volume averaging, or potentially chronic embolus. Acute pulmonary embolus considered less likely. Aorta: Aneurysmal ascending thoracic aorta measuring up to 4.4 cm in caliber, unchanged. No dissection. Scattered atherosclerotic plaque. Thyroid: Nonspecific 0.9 cm low-attenuation nodule in the left thyroid lobe, below size threshold for routine follow-up. Lungs: Moderate to severe upper lobe predominant paraseptal and centrilobular emphysema. Biapical scarring. Patchy ground-glass opacities are present relatively diffusely throughout the right lung, with a peripheral predominance. Scattered ground-glass opacities are also present throughout the left lung. Pleural spaces: Unremarkable. No pneumothorax. No pleural effusion. Heart: Heart is mildly enlarged, with biatrial dilation. No pericardial effusion. Coronary calcifications noted. The RV-LV ratio is normal. Lymph nodes: There are scattered calcified mediastinal lymph nodes compatible with old granulomas disease. There is a noncalcified precarinal lymph node measuring 1.1 cm in short axis, nonspecific and possibly reactive. Diaphragm: Small hiatal hernia. There is generalized esophageal wall thickening suggesting esophagitis, but not fully characterized on CT. Bones/joints: Osteopenia. Mild age-indeterminate superior endplate compression deformity of T8 with 15% height loss. Chronic-appearing compression fracture of T12 with up to 50% anterior height loss and 3 mm of superior endplate retropulsion. Soft tissues: Unremarkable. There is a 1.1 cm left adrenal nodule, not fully characterized on this study, but stable since 12/16/2020. IMPRESSION: 1. No large or central pulmonary embolus. Probable artifact or chronic nonocclusive embolus in a subsegmental branch of the right lower lobe superior segment. Acute pulmonary embolus thought to be less likely based on this appearance. 2. Multifocal pneumonia, compatible with reported history of COVID-19. 3. COPD. 4. Aneurysmal dilation of the ascending thoracic aorta, measuring up to 4.4 cm in caliber, unchanged since 12/16/2020. 5. Small hiatal hernia. Esophageal wall thickening may reflect esophagitis, but is not fully characterized on CT. COMMENTS: Consistent with the [employer]'s Incidental Findings Committee white paper (J Am Don Radiol 2015): In patients aged 35 years and older with an incidental thyroid nodule equal to or greater than 1.[address], MRI or extrathyroidal US, further evalu
[2021-05-23 02:44] LABS: VBG Base Excess -2.3 mmol/L (-2.4-2.3); VBG HCO3 21.9 mmol/L (23-30); VBG Oxygen Saturation 94.5 % (50-70); VBG PH 7.44 mmol/L (7.31-7.41); VBG PO2 72.4 mmol/L (28-40); VBG Total CO2 22.9 mmol/L (23-27)
[2021-05-23 02:52] LABS: Coronavirus 19, PCR Detected (NotDetected)
[2021-05-23 03:39] LABS: Lactic Acid 1.8 mmol/L (0.7-2.1)
--- NOTE | 2021-05-23 03:46 | PC.NURSE ---
patient up to floor via wheelchair at this time
--- NOTE | 2021-05-23 05:35 | PC.NURSE ---
Patient was given an IS and educated on the device.
[2021-05-23 06:42] LABS: Basophils # 0.1 K/mm3 (0-0.2); Basophils % 0.9 % (0.1-2.0); Eosinophils % 0.1 % (0.1-12.0); Hematocrit 43.4 % (37.0-47.0); Hemoglobin 14.9 g/dL (12.2-16.2); Lymphocytes # 0.7 K/mm3 (0.7-4.5); Lymphocytes % 9.6 % (10-50); Mean Corpuscular HGB Conc 34.4 g/dL (31.8-35.4); Mean Corpuscular Hemoglobin 31.3 pg (27.0-31.2); Mean Corpuscular Volume 91.2 fl (81-99); Mean Platelet Volume 9.6 fl (7.4-10.4); Monocytes # 0.4 K/mm3 (0.1-1.0); Monocytes % 5.8 % (1.7-9.3); Neutrophils # 6.3 K/mm3 (1.8-7.8); Neutrophils % 83.6 % (37.0-80.0); Platelet Count 369 K/mm3 (142-424); Red Blood Count 4.75 M/mm3 (4.20-5.40); Red Cell Distribution Width 13.5 % (11.5-17.5); White Blood Count 7.5 K/mm3 (4.8-10.8)
[2021-05-23 07:08] LABS: Anion Gap 5.9 mEq/L (5-15); Blood Urea Nitrogen 17 mg/dl (7-17); Calcium 8.2 mg/dl (8.4-10.2); Carbon Dioxide 30 mmol/L (22.0-30.0); Chloride 103 mmol/L (98-107); Creatinine Clearance Estimated 49 mL/min (50-200); Estimated Glomerular Filt Rate 97 ml/min (>60); GFR (African American) 117 ML/MIN (>60); Glucose 191 mg/dl (74-100); Potassium 3.9 mmoL/L (3.5-5.1); Sodium 135 mmol/L (136-145)
--- NOTE | 2021-05-23 07:14 | HMH.PHAINT ---
Verified home medications with [facility]
--- NOTE | 2021-05-23 07:23 | P.CONPHA_ITS ---
[facility] Pharmacy VTE Monitoring - Patient Demographics Admission date: 05/23/21 Report Date: 05/23/21 Time: 07:23 Allergies/Adverse Reactions: Patient Allergies No Known Allergies Allergy (Verified 03/13/21 14:33) Height: 1.68 m Weight: 65.317 kg Patient Problems: Current Active Problems COVID-19 (Acute) Respiratory failure with hypoxia (Acute) - VTE Risk Labs: VTE Related Lab Results Hgb 14.9 g/dL (12.2-16.2) 05/23/21 06:05 Hct 43.4 % (37.0-47.0) 05/23/21 06:05 Plt Count 369 K/mm3 (142-424) 05/23/21 06:05 BUN 17 mg/dl (7-17) 05/23/21 06:05 Creatinine 0.60 mg/dl (0.52-1.04) 05/23/21 06:05 Estimated Creat Clear 49 mL/min (50-200) 05/23/21 06:05 Was VTE Risk Assessment Performed: Yes VTE Score: 4 VTE Risk Level: Low Risk Clinical Trial Participant: No - Prophylaxis VTE Prophylaxis Ordered?: Yes Types of VTE Prophylaxis: TEDS Knee High
--- NOTE | 2021-05-23 08:46 | HMH.HP ---
*Admission Date: 05/23/21 *Chief complaint: Shortness of Breath *History of present illness: 75-year-old female patient presented to the emergency department with shortness of breath and thin white productive cough for 8 days. She also reports body aches. She checked positive for COVID-19 on 05/16/2021 and received Levaquin and prednisone by her primary care physician. Since then she has had increasing dyspnea beginning dyspnea upon walking and now dyspnea at rest. She reports feeling lightheaded when standing she denies any falls and reports her cough is worse at night. She denies any chest pain. She was not vaccinated. She received the infusion. She did receive Levaquin 750 IV in ED. 05/23/21 CXR: IMPRESSION: 1. Multilobar pneumonia in the peripheral right lung. 2. COPD. Electronically signed by Kael Quesada MD 05/23/21 Chest CTA: IMPRESSION: 1. No large or central pulmonary embolus. Probable artifact or chronic nonocclusive embolus in a subsegmental branch of the right lower lobe superior segment. Acute pulmonary embolus thought to be less likely based on this appearance. 2. Multifocal pneumonia, compatible with reported history of COVID-19. 3. COPD. 4. Aneurysmal dilation of the ascending thoracic aorta, measuring up to 4.4 cm in caliber, unchanged since 12/16/2020. 5. Small hiatal hernia. Esophageal wall thickening may reflect esophagitis, but is not fully characterized on CT. Electronically signed by Kael Quesada MD 75-year-old female patient sitting up in bed resting quietly she reports she feels a little better today than yesterday. Oxygen saturation 91% on high flow nasal cannula. She denies any chest pain, pulmonology consult [facility] History I have reviewed the patient's past medical history: Yes Medical History: Reports:: Aneurysm (Ascending aortic aneurysm), Congestive Heart Failure, Coronary Artery Disease, Heart Murmur, Hyperlipidemia, Hypertension Denies:: Diabetes Mellitus Type 1, Diabetes Mellitus Type 2, Internal Pacemaker, MRSA *Have you ever received a pneumonia vaccine?: No *Have you received a flu vaccine this season?: No Other Medical History: Reports: Other Other Surgeries: Yes: No Previous Surgery, Other. No: Pacemaker Amputation: No Fractures: Yes - *Social History Smoking Status: Current every day smoker Tobacco Type: cigarettes # Packs/Day (cigarettes): 1 Alcohol Intake: never Substance Use Type: denies use *Occupational Status:: retired Housing: house Household Members: family *Travel in the last 8 weeks: None Family Hx:: Hypertension Review of Systems - Review of Systems Review of systems:: pertinent systems reviewed and negative unless documented below - Constitutional Reports fatigue, Reports malaise - Eyes Denies change in vision, Denies double vision - ENT Denies abnormal hearing, Denies dizziness - *Cardiovascular Reports shortness of breath, Reports shortness of breath with activity, Denies chest pain - *Respiratory Reports chest congestion, Reports cough, Reports shortness of breath, Reports shortness of breath with activity - *Gastrointestinal Denies abdominal pain, Denies change in bowel habits - *Musculoskeletal Denies joint pain, Denies back pain - Integumentary/Breasts Denies bleeding lesions, Denies change in skin color - *Neurologic Reports unsteadiness, Denies headache(s), Denies numbness, Denies tingling, Denies weakness - Psychiatric Denies anxiety, Denies difficulty concentrating - Endocrine Denies cold intolerance, Denies rapid, pounding, or irregular heartbeat - Hematologic/Lymphatic Denies easy bleeding, Denies easy bruising - Allergic/Immunologic Denies GI upset with certain foods, Denies hives Meds Home Medications Medication Instructions Recorded Confirmed Type Benzonatate [Benzonatate 100mg 100 mg PO TIDP PRN #30 cap 05/16/21 05/23/21 Rx cap] guaiFENesin [Mucinex 600mg tablet] 1 - 2 tab PO BIDP PRN #
--- NOTE | 2021-05-23 14:44 | HMH.PULMCON ---
*Admission Date: 05/23/21 *Reason for consult:: Acute hypoxic respiratory failure, COVID-19 pneumonia *History of present illness: Ms. Espinosa is a 75-year-old female current smoker greater than [id number] smoking history, yet to be vaccinated presented to the hospital with worsening respiratory status confirmed to be COVID-19 positive. Patient diagnosed with COVID-19 pneumonia on 05/16/2021 and has been progressively getting worse since then. [facility] History Medical History: Reports:: Aneurysm (Ascending aortic aneurysm), Congestive Heart Failure, Coronary Artery Disease, Heart Murmur, Hyperlipidemia, Hypertension Denies:: Diabetes Mellitus Type 1, Diabetes Mellitus Type 2, Internal Pacemaker, MRSA *Have you ever received a pneumonia vaccine?: No *Have you received a flu vaccine this season?: No Other Medical History: Reports: Other Other Surgeries: Yes: No Previous Surgery, Other. No: Pacemaker Amputation: No Fractures: Yes - *Social History Smoking Status: Current every day smoker Tobacco Type: cigarettes # Packs/Day (cigarettes): 1 Alcohol Intake: never Substance Use Type: denies use *Occupational Status:: retired Housing: house Household Members: family *Travel in the last 8 weeks: None Family Hx:: Hypertension ROS - Cons Reports anorexia, Reports body ache(s) - ENT Denies pain with swallowing, Denies post nasal drip - Card Reports shortness of breath, Reports shortness of breath with activity, Denies leg swelling - Resp Respiratory: Reports shortness of breath, Reports chest congestion, Reports cough, Reports excessive phlegm production, Denies coughing up blood, Denies pain on inspiration - GI Gastrointestingal: Denies: abdominal pain - Psych Denies thoughts of hurting/killing others, Denies thoughts of hurting/killing yourself Meds Home Medications Medication Instructions Recorded Confirmed Type Benzonatate [Benzonatate 100mg 100 mg PO TIDP PRN #30 cap 05/16/21 05/23/21 Rx cap] guaiFENesin [Mucinex 600mg tablet] 1 - 2 tab PO BIDP PRN #30 tab 05/16/21 05/23/21 Rx Aspirin [Low Dose Aspirin EC] 81 mg PO DAILY 05/23/21 05/23/21 History Atorvastatin Calcium [Lipitor 10mg 10 mg PO HS 05/23/21 05/23/21 History Tab] Furosemide [Furosemide 20mg Tab*] 20 mg PO DAILY 05/23/21 05/23/21 History Losartan Potassium [Cozaar 25mg 25 mg PO DAILY 05/23/21 05/23/21 History Tablets] levoFLOXacin [Levaquin 500mg 500 mg PO DAILY 05/23/21 05/23/21 History tab] predniSONE [Deltasone 10mg tablet] 10 mg PO DAILY 05/23/21 05/23/21 History Allergies Allergy/AdvReac Type Severity Reaction Status Date / Time No Known Allergies Allergy Verified 03/13/21 14:33 Exam - Constitutional Constitutional:: Present: no acute distress, comfortable - HENMT Exam HENMT: Present: normocephalic, atraumatic - Eye Exam Eyes:: Present: normal appearance both eyes and related structures - Neck Exam Neck:: Present: normal visual inspection - Respiratory Exam Respiratory:: Present: able to speak in complete sentences, respiratory distress, crackles, rales. Absent: wheezing - Cardiovascular Exam Cardiac:: Present: S1, S2 - GI Exam GI:: Present: soft, no hepatosplenomegaly, no tenderness - Skin Exam Skin: Present: no rash - Neurological Exam Neurological: Present: alert, awake, normal cognition - Extremities Exam Extremities: Present: no cyanosis, no clubbing, no edema Internal Medicine - CN: Reslt - Labs CBC & Chem 7: 05/23/21 06:05 05/23/21 06:05 Labs: Short CBC 05/23/21 05/23/21 Range/Units 00:09 06:05 WBC 8.4 7.5 (4.8-10.8) K/mm3 Hgb 15.7 14.9 (12.2-16.2) g/dL Hct 45.1 43.4 (37.0-47.0) % Plt Count 369 369 (142-424) K/mm3 BMP 05/23/21 05/23/21 00:09 06:05 Sodium 134 L 135 L Potassium 3.7 3.9 Chloride 103 103 Carbon Dioxide 28 30 BUN 17 17 Creatinine 0.60 0.60 Glucose 226 H 191 H Calcium 8.2 L 8.2 L Liver Function
--- NOTE | 2021-05-23 17:21 | PC.NURSE ---
Patient is on high slow NC, weaned from 15L to 10L. Patient tolerating well. Patient will desat when up to restroom, recovers quickly. Non tele. Alert and oriented times 4. Bed in lowest position and phone and call light in reach. Will continue to monitor.
[2021-05-24] VITALS (10 sets, daily range): BP systolic 95–110; BP diastolic 51–67; PULSE 61–84; RESP 18–25; TEMP 36.4–37; O2SAT 87–98; BMI 21.8
--- NOTE | 2021-05-24 04:37 | PC.NURSE ---
Patient has remained on 10LNC, no acute events have occurred thus far in this RN's shift.
[2021-05-24 06:47] LABS: Basophils # 0.1 K/mm3 (0-0.2); Basophils % 0.3 % (0.1-2.0); Hematocrit 38.9 % (37.0-47.0); Lymphocytes # 1.2 K/mm3 (0.7-4.5); Lymphocytes % 8.9 % (10-50); Mean Corpuscular HGB Conc 33.3 g/dL (31.8-35.4); Mean Corpuscular Hemoglobin 30.9 pg (27.0-31.2); Mean Corpuscular Volume 92.8 fl (81-99); Mean Platelet Volume 9.5 fl (7.4-10.4); Monocytes # 0.7 K/mm3 (0.1-1.0); Monocytes % 5.2 % (1.7-9.3); Neutrophils # 11.4 K/mm3 (1.8-7.8); Neutrophils % 85.5 % (37.0-80.0); Platelet Count 428 K/mm3 (142-424); Red Blood Count 4.19 M/mm3 (4.20-5.40); Red Cell Distribution Width 13.4 % (11.5-17.5); White Blood Count 13.3 K/mm3 (4.8-10.8)
[2021-05-24 07:28] LABS: MANUAL DIFFERENTIAL MANUAL DIFFERENTIAL (MANUAL DIFF)
--- NOTE | 2021-05-24 08:39 | P.PN_ITS ---
Internal Medicine - PN: Subj *Date: 05/24/21 *Time: 08:10 Interval history: pt states she ate all of her breakfast, states soa improved, still on 10 liters nc Exam Vital signs and Labs for Last 24 Hours: Temp Pulse Resp BP Pulse Ox 97.5 F L 84 25 H 106/60 L 90 L 05/24/21 08:00 05/24/21 08:00 05/24/21 08:00 05/24/21 08:00 05/24/21 08:00 Laboratory Results - last 24 hr 05/24/21 05:42: WBC 13.3 H D, RBC 4.19 L, Hct 38.9, MCV 92.8, MCH 30.9, MCHC 33.3, RDW 13.4, Plt Count 428 H, MPV 9.5, Neut % (Auto) 85.5 H, Lymph % (Auto) 8.9 L, [place] % (Auto) 5.2, Eos % (Auto) 0.0 L, Baso % (Auto) 0.3, Neut # (Auto) 11.4 H, Lymph # (Auto) 1.2, [place] # (Auto) 0.7, Eos # (Auto) 0.0, Baso # (Auto) 0.1 I & O for Last 24 hours: Intake & Output 05/21/21 05/22/21 05/23/21 05/24/21 11:59 11:59 11:59 11:59 Intake Total 240 / 240 720 / 720 Balance 240 / 240 720 / 720 Weight 143 lb 15.742 oz 135 lb 12.8 oz - Constitutional no acute distress - *Routine HEENT Exam Head: Present: normocephalic Eye: Present: PERRL ENT: Present: mucous membranes moist - *Routine Neck Exam Present: supple. Absent: lymphadenopathy - *Routine Respiratory Exam Present: rhonchi - *Routine Cardiovascular Exam Present: RRR - *Routine Abdominal Exam Present: soft, normoactive bowel sounds. Absent: tenderness - *Routine Extremities Exam Absent: cyanosis, clubbing, edema - *Routine Skin Exam Present: warm. Absent: rash - *Routine Neurological Exam Present: alert, oriented X3 Assessment and Plan (1) COVID-19 Status: Acute Category: Medical Code(s): U07.1 - COVID-19 (2) Respiratory failure with hypoxia Status: Acute Qualifiers: Chronicity: acute Qualified Code(s): J96.01 - Acute respiratory failure with hypoxia Category: Medical Code(s): J96.91 - Respiratory failure, unspecified with hypoxia (3) HLD (hyperlipidemia) Status: Chronic Qualifiers: Hyperlipidemia type: mixed hyperlipidemia Qualified Code(s): E78.2 - Mixed hyperlipidemia Category: Medical Code(s): E78.5 - Hyperlipidemia, unspecified (4) HTN (hypertension) Status: Chronic Qualifiers: Hypertension type: primary hypertension Qualified Code(s): I10 - Essential (primary) hypertension Category: Medical Code(s): I10 - Essential (primary) hypertension (5) Tobacco use Status: Chronic Category: Social Hx Code(s): Z72.0 - Tobacco use - Assessment and plan all Dx Assessment and Plan for all problems:: rounded with dr blackwell all orders per dr blackwell pulm consult continue plan of care
[2021-05-24 08:49] LABS: Lymphocytes % 8 % (10-50); Monocytes % 1 % (2-9); Neutrophils % 91 % (42-76); Platelet Estimate Normal; Total Cells Counted 100
[2021-05-24 09:00] LABS: Alanine Aminotransferase 25 U/L (12-78); Albumin Level 2.7 g/dl (3.5-5.0); Albumin/Globulin Ratio 0.9 (1.1-1.8); Alkaline Phosphatase 68 U/L (38-126); Anion Gap 7.3 mEq/L (5-15); Aspartate Amino Transferase 38 U/L (14-36); Bilirubin,Total 0.2 mg/dl (0.2-1.3); Blood Urea Nitrogen 19 mg/dl (7-17); Calcium 7.7 mg/dl (8.4-10.2); Carbon Dioxide 27 mmol/L (22.0-30.0); Chloride 108 mmol/L (98-107); Creatinine Clearance Estimated 46 mL/min (50-200); Estimated Glomerular Filt Rate 81 ml/min (>60); GFR (African American) 98 ML/MIN (>60); Globulin 3.1 g/dL (1.3-3.2); Glucose 148 mg/dl (74-100); Potassium 3.3 mmoL/L (3.5-5.1); Sodium 139 mmol/L (136-145); Total Protein,Serum 5.8 g/dl (6.3-8.2)
--- NOTE | 2021-05-24 11:09 | PC.NURSE ---
RESP CARE NOTE: Pt SPO2 at 86% on 11lpm nc. Oxygen increased to 12 lpm nc. Will continue to monitor.
--- NOTE | 2021-05-24 18:16 | PC.NURSE ---
Patient is non tele and on 12L NC. Patient is up with standby assist and up to bedside commode. Patient has been up to chair today. Patient has been using incentive spirometer and tolerating well. Plan of care, continue to wean O2. Bed in lowest position and phone and call light in reach. Will continue to monitor.
[2021-05-25] VITALS (10 sets, daily range): BP systolic 99–132; BP diastolic 52–70; PULSE 48–93; RESP 16–26; TEMP 36.6–37.1; O2SAT 88–98; BMI 22.2
--- NOTE | 2021-05-25 06:00 | XR_ITS ---
PROCEDURE INFORMATION: Exam: XR Chest Exam date and time: 05/25/2021 6:00 AM Age: 75 years old Clinical indication: Condition or disease; Lung condition and disease; Other: Covid TECHNIQUE: Imaging protocol: XR of the chest. Views: 1 view. COMPARISON: CR XR CHEST PORTABLE 05/22/2021 11:57 PM FINDINGS: Lungs: IncreasingBilateral scattered heterogeneous pulmonary opacities, infectious/inflammatory and/or pulmonary edema. Pleural spaces: No pleural effusion. No pneumothorax. Heart/Mediastinum: Unremarkable cardiomediastinal silhouette. Bones/joints: No acute osseous findings. IMPRESSION: IncreasingBilateral scattered heterogeneous pulmonary opacities, infectious/inflammatory and/or pulmonary edema. Recommend imaging follow-up until complete resolution.
[2021-05-25 06:52] LABS: Basophils # 0.1 K/mm3 (0-0.2); Basophils % 0.4 % (0.1-2.0); Hematocrit 37.4 % (37.0-47.0); Hemoglobin 12.5 g/dL (12.2-16.2); Lymphocytes # 1.4 K/mm3 (0.7-4.5); Lymphocytes % 9.8 % (10-50); Mean Corpuscular HGB Conc 33.4 g/dL (31.8-35.4); Mean Corpuscular Hemoglobin 31.1 pg (27.0-31.2); Mean Corpuscular Volume 93.1 fl (81-99); Mean Platelet Volume 9.2 fl (7.4-10.4); Monocytes # 0.6 K/mm3 (0.1-1.0); Monocytes % 4.4 % (1.7-9.3); Neutrophils # 11.9 K/mm3 (1.8-7.8); Neutrophils % 85.4 % (37.0-80.0); Platelet Count 437 K/mm3 (142-424); Red Blood Count 4.02 M/mm3 (4.20-5.40); Red Cell Distribution Width 13.5 % (11.5-17.5); White Blood Count 13.9 K/mm3 (4.8-10.8)
[2021-05-25 07:00] LABS: MANUAL DIFFERENTIAL MANUAL DIFFERENTIAL (MANUAL DIFF)
[2021-05-25 07:06] LABS: Alanine Aminotransferase 21 U/L (12-78); Albumin Level 2.6 g/dl (3.5-5.0); Albumin/Globulin Ratio 0.9 (1.1-1.8); Alkaline Phosphatase 64 U/L (38-126); Anion Gap 5.4 mEq/L (5-15); Aspartate Amino Transferase 33 U/L (14-36); Bilirubin,Total 0.5 mg/dl (0.2-1.3); Blood Urea Nitrogen 21 mg/dl (7-17); Calcium 7.6 mg/dl (8.4-10.2); Carbon Dioxide 29 mmol/L (22.0-30.0); Chloride 109 mmol/L (98-107); Creatinine Clearance Estimated 47 mL/min (50-200); Estimated Glomerular Filt Rate 81 ml/min (>60); GFR (African American) 98 ML/MIN (>60); Glucose 108 mg/dl (74-100); Potassium 3.4 mmoL/L (3.5-5.1); Sodium 140 mmol/L (136-145); Total Protein,Serum 5.6 g/dl (6.3-8.2)
--- NOTE | 2021-05-25 08:24 | HMH.ACPN2 ---
Internal Medicine - PN: Subj *Date: 05/25/21 *Time: 10:07 Interval history: 75-year-old female patient sitting up in bed tolerating breakfast without any difficulty. She denies any shortness of breath during the night and states she is feeling about the same as yesterday. Current oxygenation 94% on 12 L per high flow nasal cannula. She does report having a bowel movement yesterday. Exam Vital signs and Labs for Last 24 Hours: Temp Pulse Resp BP Pulse Ox 98.8 F 55 L 16 132/70 93 L 05/25/21 04:00 05/25/21 06:20 05/25/21 04:00 05/25/21 04:00 05/25/21 06:20 Laboratory Results - last 24 hr 05/24/21 05:42: Sodium 139, Potassium 3.3 L, Chloride 108 H, Carbon Dioxide 27, Anion Gap 7.3, BUN 19 H, Creatinine 0.70, Estimated Creat Clear 46, Estimated GFR 81, Est GFR ( Amer) 98, Glucose 148 H D, Calcium 7.7 L, Total Bilirubin 0.2, AST 38 H D, ALT 25, Alkaline Phosphatase 68, Total Protein 5.8 L, Albumin 2.7 L D, Globulin 3.1, Albumin/Globulin Ratio 0.9 L 05/24/21 05:42: Hgb 14.0, Total Counted 100, Neutrophils % (Manual) 91 H, Lymphocytes % (Manual) 8 L, Monocytes % (Manual) 1 L, Platelet Estimate Normal 05/25/21 06:19: Sodium 140, Potassium 3.4 L, Chloride 109 H, Carbon Dioxide 29, Anion Gap 5.4, BUN 21 H, Creatinine 0.70, Estimated Creat Clear 47, Estimated GFR 81, Est GFR ( Amer) 98, Glucose 108 H, Calcium 7.6 L, Total Bilirubin 0.5, AST 33, ALT 21, Alkaline Phosphatase 64, Total Protein 5.6 L, Albumin 2.6 L, Globulin 3.0, Albumin/Globulin Ratio 0.9 L 05/25/21 06:19: WBC 13.9 H, RBC 4.02 L, Hgb 12.5, Hct 37.4, MCV 93.1, MCH 31.1, MCHC 33.4, RDW 13.5, Plt Count 437 H, MPV 9.2, Neut % (Auto) 85.4 H, Lymph % (Auto) 9.8 L, [place] % (Auto) 4.4, Eos % (Auto) 0.0 L, Baso % (Auto) 0.4, Neut # (Auto) 11.9 H, Lymph # (Auto) 1.4, [place] # (Auto) 0.6, Eos # (Auto) 0.0, Baso # (Auto) 0.1 I & O for Last 24 hours: Intake & Output 05/22/21 05/23/21 05/24/21 05/25/21 23:59 23:59 23:59 23:59 Intake Total 720 / 720 720 / 720 Output Total 400 / 400 Balance 720 / 720 320 / 320 Weight 144 lb 143 lb 15.742 oz 135 lb 12.8 oz 138 lb 6.4 oz - Constitutional no acute distress, thin, chronically ill appearing - *Routine HEENT Exam Head: Present: normocephalic Eye: Present: EOMI ENT: Present: mucous membranes moist - *Routine Neck Exam Present: supple, trachea midline. Absent: tracheal deviation - *Routine Respiratory Exam Present: crackles. Absent: accessory muscle use - *Routine Cardiovascular Exam Present: RRR - *Routine Abdominal Exam Present: soft, normoactive bowel sounds. Absent: tenderness, firm - *Routine Extremities Exam Present: full ROM, pulses intact. Absent: cyanosis, clubbing, calf tenderness - *Routine Skin Exam Present: intact, cyanosis, dry, warm. Absent: erythema - *Routine Neurological Exam Present: alert, oriented X3. Absent: motor deficit - Routine Psychiatric Exam Present: normal affect, normal thought process. Absent: auditory hallucinations Assessment and Plan (1) COVID-19 Status: Acute Category: Medical Code(s): U07.1 - COVID-19 (2) Respiratory failure with hypoxia Status: Acute Qualifiers: Chronicity: acute Qualified Code(s): J96.01 - Acute respiratory failure with hypoxia Category: Medical Code(s): J96.91 - Respiratory failure, unspecified with hypoxia (3) HLD (hyperlipidemia) Status: Chronic Qualifiers: Hyperlipidemia type: mixed hyperlipidemia Qualified Code(s): E78.2 - Mixed hyperlipidemia Category: Medical Code(s): E78.5 - Hyperlipidemia, unspecified (4) HTN (hypertension) Status: Chronic Qualifiers: Hypertension type: primary hypertension Qualified Code(s): I10 - Essential (primary) hypertension Category: Medical Code(s): I10 - Essential (primary) hypertension (5) Tobacco use Status: Chronic Category: Social Hx Code(s): Z72.0 - Tobacco use (6) Pneumonia due to COVID-19 virus Status: Acute
[2021-05-25 09:34] LABS: Lymphocytes % 8 % (10-50); Monocytes % 1 % (2-9); Neutrophils % 91 % (42-76); RBC Morphology Normal; Total Cells Counted 100
[2021-05-25 09:35] LABS: Platelet Estimate Slight Increase
--- NOTE | 2021-05-25 09:45 | CA_ITS ---
APPROVED REPORT Bilateral Lower Extremity Venous Study for DVT. Sr. Logistics Analyst: JUANA CastilloT Indications Shortness of breath SOA,COVID Vein Imaging CFV (R): compressive, spontaneous, phasic, augmentation FEM (R): compressive, spontaneous, phasic, augmentation POP (R): compressive, spontaneous, phasic, augmentation PTV (R): Compressible GSV (R): Compressible Peroneals (R):Compressible GAS (R): Compressible CFV (L): compressive, spontaneous, phasic, augmentation FEM (L): compressive, spontaneous, phasic, augmentation POP (L): compressive, spontaneous, phasic, augmentation PTV (L): Compressible GSV (L): Compressible Peroneals (L):Compressible GAS (L): Compressible Findings Study suggests no evidence of DVT/SVT of the bilateral lower extremites. Conclusion Study suggests no evidence of DVT/SVT of the bilateral lower extremites. Electronically signed by : Gaurav Petty MD 05/25/2021 17:21:04
--- NOTE | 2021-05-25 11:28 | HMH.PULMPN ---
Internal Medicine - PN: Subj *Date: 05/25/21 *Time: 11:28 Interval history: No acute respite events in the last 24 hours. Patient is not compliant with proning protocol. Admits improvement in her symptoms. Exam - Constitutional Constitutional:: Present: no acute distress, comfortable - HENMT Exam HENMT: Present: normocephalic, atraumatic - Eye Exam Eyes:: Present: normal appearance both eyes and related structures - Neck Exam Neck:: Present: normal visual inspection - Respiratory Exam Respiratory:: Present: able to speak in complete sentences, no respiratory distress, rales - Cardiovascular Exam Cardiac:: Present: S1, S2 - GI Exam GI:: Present: soft, no hepatosplenomegaly - Skin Exam Skin: Present: warm - Neurological Exam Neurological: Present: alert, awake, normal cognition - Extremities Exam Extremities: Present: no cyanosis, no clubbing, no edema Assessment and Plan (1) COVID-19 Status: Acute Category: Medical Code(s): U07.1 - COVID-19 (2) Respiratory failure with hypoxia Status: Acute Qualifiers: Chronicity: acute Qualified Code(s): J96.01 - Acute respiratory failure with hypoxia Category: Medical Code(s): J96.91 - Respiratory failure, unspecified with hypoxia (3) HLD (hyperlipidemia) Status: Chronic Qualifiers: Hyperlipidemia type: mixed hyperlipidemia Qualified Code(s): E78.2 - Mixed hyperlipidemia Category: Medical Code(s): E78.5 - Hyperlipidemia, unspecified (4) HTN (hypertension) Status: Chronic Qualifiers: Hypertension type: primary hypertension Qualified Code(s): I10 - Essential (primary) hypertension Category: Medical Code(s): I10 - Essential (primary) hypertension (5) Tobacco use Status: Chronic Category: Social Hx Code(s): Z72.0 - Tobacco use (6) Pneumonia due to COVID-19 virus Status: Acute Category: Medical Code(s): U07.1 - COVID-19; J12.82 - Pneumonia due to coronavirus disease 2019 - Assessment and plan all Dx Assessment and Plan for all problems:: #COVID-19 pneumonia: #Acute hypoxic respiratory failure: 75-year-old current smoker greater than 49-dykj-wfrm smoking history, baseline respiratory symptoms. Not on any inhalers. Yet to be vaccinated. Initial positive diagnosis of COVID-19 pneumonia from 05/16/2021. Initial visit levofloxacin and prednisone. Continued worsening respiratory symptoms. Afebrile. No evidence of leukocytosis. CTA did not show any obvious evidence of acute pulmonary embolism however showed bilateral emphysematous changes with airspace disease/groundglass opacities. D-dimer 0.95. CRP 59.8. Interval update: Patient admits mild improvement in her symptoms. She continued to remain on 12 L nasal cannula with oxygen saturations maintained at 91 to 92% today. No lower extremity edema noted. She continues receive ceftriaxone and azithromycin. Patient appeared to be in mild respiratory distress. Auscultation crackles and rails. On 2 L nasal cannula saturating 91 to 93%. Nasal MRSA PCR sample not collected yet. Leukocytosis slightly worsened. We will closely monitor. Afebrile Plan: DuoNebs every 6 hours scheduled along with budesonide every 12 hrs Remdesivir for 5 days and dexamethasone 6 mg daily for total of 10 days Ceftriaxone and azithromycin, follow with nasal MRSA PCR and sputum culture Continue oxygen supplementation, wean as tolerated with O2 saturation goal of 88 and above #Thank you for involving pulmonary in this patient care. We will continue to follow.
[2021-05-26] VITALS (11 sets, daily range): BP systolic 101–138; BP diastolic 44–82; PULSE 65–82; RESP 16–24; TEMP 36.5–36.7; O2SAT 86–93; BMI 22.4
--- NOTE | 2021-05-26 03:05 | PC.NURSE ---
A&OX4. TOLERATING HIGH FLOW NC WELL AT 12L. PT HAS HAD NO C/O THUS FAR THIS SHIFT. HAS BEEN ASLEEP THUS FAR. PT IS PRONING THIS SHIFT. ALSO HAS USED IS. COVID PRECAUTIONS IN PLACE, VSS WILL CONTINUE TO MONITOR.
[2021-05-26 06:38] LABS: Basophils % 0.3 % (0.1-2.0); Eosinophils # 0.1 K/mm3 (0.0-0.4); Eosinophils % 0.3 % (0.1-12.0); Hematocrit 39.7 % (37.0-47.0); Hemoglobin 13.4 g/dL (12.2-16.2); Lymphocytes # 1.4 K/mm3 (0.7-4.5); Lymphocytes % 10.1 % (10-50); Mean Corpuscular HGB Conc 33.9 g/dL (31.8-35.4); Mean Corpuscular Hemoglobin 31.1 pg (27.0-31.2); Mean Corpuscular Volume 91.9 fl (81-99); Mean Platelet Volume 9.5 fl (7.4-10.4); Monocytes # 0.6 K/mm3 (0.1-1.0); Monocytes % 4.2 % (1.7-9.3); Neutrophils # 11.7 K/mm3 (1.8-7.8); Neutrophils % 85.1 % (37.0-80.0); Platelet Count 483 K/mm3 (142-424); Red Blood Count 4.32 M/mm3 (4.20-5.40); Red Cell Distribution Width 13.4 % (11.5-17.5); White Blood Count 13.8 K/mm3 (4.8-10.8)
[2021-05-26 06:40] LABS: MANUAL DIFFERENTIAL MANUAL DIFFERENTIAL (MANUAL DIFF)
[2021-05-26 06:47] LABS: Chloride 109 mmol/L (98-107); Potassium 3.3 mmoL/L (3.5-5.1); Sodium 140 mmol/L (136-145)
[2021-05-26 06:50] LABS: Alanine Aminotransferase 22 U/L (12-78); Albumin Level 2.7 g/dl (3.5-5.0); Albumin/Globulin Ratio 0.9 (1.1-1.8); Alkaline Phosphatase 75 U/L (38-126); Anion Gap 9.3 mEq/L (5-15); Aspartate Amino Transferase 34 U/L (14-36); Bilirubin,Total 0.5 mg/dl (0.2-1.3); Blood Urea Nitrogen 16 mg/dl (7-17); Calcium 7.4 mg/dl (8.4-10.2); Carbon Dioxide 25 mmol/L (22.0-30.0); Creatinine Clearance Estimated 47 mL/min (50-200); Estimated Glomerular Filt Rate 97 ml/min (>60); GFR (African American) 117 ML/MIN (>60); Globulin 3.1 g/dL (1.3-3.2); Glucose 96 mg/dl (74-100); Total Protein,Serum 5.8 g/dl (6.3-8.2)
[2021-05-26 08:43] LABS: C-Reactive Protein 40.8 mg/L (0-4)
[2021-05-26 08:45] LABS: Lymphocytes % 12 % (10-50); Monocytes % 1 % (2-9); Neutrophils % 87 % (42-76); RBC Morphology Normal; Total Cells Counted 100
[2021-05-26 08:46] LABS: Platelet Estimate Slight Increase
[2021-05-26 08:47] LABS: NT Pro Brain Natriuretic Pep. 1650 pg/mL (0-450)
--- NOTE | 2021-05-26 09:47 | HMH.ACPN2 ---
Internal Medicine - PN: Subj *Date: 05/26/21 *Time: 09:00 Interval history: pt sitting up in bed states she had a good night, ate some breakfast, pt states soa but no different than last couple days. on o2 12 liters slight increase of breathing, able to talk in complete sentences Exam Vital signs and Labs for Last 24 Hours: Temp Pulse Resp BP Pulse Ox 97.7 F 65 20 102/44 L 89 L 05/26/21 07:47 05/26/21 07:47 05/26/21 07:47 05/26/21 07:47 05/26/21 07:47 Laboratory Results - last 24 hr 05/26/21 06:04: C-Reactive Protein 40.8 H, NT-Pro-B Natriuret Pep 1650 H 05/26/21 06:04: Sodium 140, Potassium 3.3 L, Chloride 109 H, Carbon Dioxide 25, Anion Gap 9.3, BUN 16, Creatinine 0.60, Estimated Creat Clear 47, Estimated GFR 97, Est GFR ( Amer) 117, Glucose 96, Calcium 7.4 L, Total Bilirubin 0.5, AST 34, ALT 22, Alkaline Phosphatase 75, Total Protein 5.8 L, Albumin 2.7 L, Globulin 3.1, Albumin/Globulin Ratio 0.9 L 05/26/21 06:04: WBC 13.8 H, RBC 4.32, Hgb 13.4, Hct 39.7, MCV 91.9, MCH 31.1, MCHC 33.9, RDW 13.4, Plt Count 483 H, MPV 9.5, Neut % (Auto) 85.1 H, Lymph % (Auto) 10.1, [place] % (Auto) 4.2, Eos % (Auto) 0.3, Baso % (Auto) 0.3, Neut # (Auto) 11.7 H, Lymph # (Auto) 1.4, [place] # (Auto) 0.6, Eos # (Auto) 0.1, Baso # (Auto) 0.0, Total Counted 100, Neutrophils % (Manual) 87 H, Lymphocytes % (Manual) 12, Monocytes % (Manual) 1 L, Platelet Estimate Slight increase, RBC Morphology Normal I & O for Last 24 hours: Intake & Output 05/23/21 05/24/21 05/25/21 05/26/21 11:59 11:59 11:59 11:59 Intake Total 240 / 240 720 / 720 720 / 720 480 / 480 Output Total 400 / 400 Balance 240 / 240 320 / 320 720 / 720 480 / 480 Weight 143 lb 15.742 oz 135 lb 12.8 oz 138 lb 6.4 oz 139 lb 14.4 oz - Constitutional mild distress - *Routine HEENT Exam Head: Present: normocephalic Eye: Present: PERRL ENT: Present: mucous membranes moist - *Routine Neck Exam Present: supple. Absent: lymphadenopathy - *Routine Respiratory Exam Present: crackles - *Routine Cardiovascular Exam Present: RRR - *Routine Abdominal Exam Present: soft, normoactive bowel sounds. Absent: tenderness - *Routine Extremities Exam Absent: cyanosis, clubbing, edema - *Routine Skin Exam Present: warm. Absent: rash - *Routine Neurological Exam Present: alert, oriented X3 Assessment and Plan (1) COVID-19 Status: Acute Category: Medical Code(s): U07.1 - COVID-19 (2) Respiratory failure with hypoxia Status: Acute Qualifiers: Chronicity: acute Qualified Code(s): J96.01 - Acute respiratory failure with hypoxia Category: Medical Code(s): J96.91 - Respiratory failure, unspecified with hypoxia (3) HLD (hyperlipidemia) Status: Chronic Qualifiers: Hyperlipidemia type: mixed hyperlipidemia Qualified Code(s): E78.2 - Mixed hyperlipidemia Category: Medical Code(s): E78.5 - Hyperlipidemia, unspecified (4) HTN (hypertension) Status: Chronic Qualifiers: Hypertension type: primary hypertension Qualified Code(s): I10 - Essential (primary) hypertension Category: Medical Code(s): I10 - Essential (primary) hypertension (5) Tobacco use Status: Chronic Category: Social Hx Code(s): Z72.0 - Tobacco use (6) Pneumonia due to COVID-19 virus Status: Acute Category: Medical Code(s): U07.1 - COVID-19; J12.82 - Pneumonia due to coronavirus disease 2019 - Assessment and plan all Dx Assessment and Plan for all problems:: rounded with dr blackwell all orders per dr blackwell pulm consult oob wean o2 keep sats above 88%
--- NOTE | 2021-05-26 10:46 | P.PN_ITS ---
Internal Medicine - PN: Subj *Date: 05/26/21 *Time: 10:46 Interval history: No acute respiratory events overnight. Patient admits improvement in her symptoms. Exam - Constitutional Constitutional:: Present: no acute distress, comfortable - HENMT Exam HENMT: Present: normocephalic - Eye Exam Eyes:: Present: normal appearance both eyes and related structures - Neck Exam Neck:: Present: normal visual inspection - Respiratory Exam Respiratory:: Present: able to speak in complete sentences, respiratory distress, crackles, rales - Cardiovascular Exam Cardiac:: Present: S1, S2 - GI Exam GI:: Present: soft - Skin Exam Skin: Present: warm, no rash - Neurological Exam Neurological: Present: alert, awake - Extremities Exam Extremities: Present: no cyanosis, no clubbing, no edema Assessment and Plan (1) COVID-19 Status: Acute Category: Medical Code(s): U07.1 - COVID-19 (2) Respiratory failure with hypoxia Status: Acute Qualifiers: Chronicity: acute Qualified Code(s): J96.01 - Acute respiratory failure with hypoxia Category: Medical Code(s): J96.91 - Respiratory failure, unspecified with hypoxia (3) HLD (hyperlipidemia) Status: Chronic Qualifiers: Hyperlipidemia type: mixed hyperlipidemia Qualified Code(s): E78.2 - Mixed hyperlipidemia Category: Medical Code(s): E78.5 - Hyperlipidemia, unspecified (4) HTN (hypertension) Status: Chronic Qualifiers: Hypertension type: primary hypertension Qualified Code(s): I10 - Essential (primary) hypertension Category: Medical Code(s): I10 - Essential (primary) hypertension (5) Tobacco use Status: Chronic Category: Social Hx Code(s): Z72.0 - Tobacco use (6) Pneumonia due to COVID-19 virus Status: Acute Category: Medical Code(s): U07.1 - COVID-19; J12.82 - Pneu monia due to coronavirus disease 2019 - Assessment and plan all Dx Assessment and Plan for all problems:: #COVID-19 pneumonia: #Acute hypoxic respiratory failure: 75-year-old current smoker greater than 47-[id number] smoking history, baseline respiratory symptoms. Not on any inhalers. Yet to be vaccinated. Initial positive diagnosis of COVID-19 pneumonia from 05/16/2021. Initial visit levofloxacin and prednisone. Continued worsening respiratory symptoms. Afebrile. No evidence of leukocytosis. CTA did not show any obvious evidence of acute pulmonary embolism however showed bilateral emphysematous changes with airspace disease/groundglass opacities. D-dimer 0.95. CRP 59.8. Interval update: Respiratory status improving. CRP improving. BNP elevated. Oxygen requirements weaned to 6 L nasal cannula. Patient is now compliant with proning protocol. Plan: Continue proning protocol Lasix 40 mg IV once and Kcl 40mEq oral replacement once DuoNebs every 6 hours scheduled along with budesonide every 12 hrs Remdesivir for 5 days and dexamethasone 6 mg daily for total of 10 days Ceftriaxone and azithromycin, follow with nasal MRSA PCR and sputum culture Continue oxygen supplementation, wean as tolerated with O2 saturation goal of 88 and above #Thank you for involving pulmonary in this patient care. We will continue to follow.
--- NOTE | 2021-05-26 11:39 | HMH.ACPN ---
Internal Medicine - PN: Subj *Date: 05/26/21 *Time: 11:39 Exam Vital signs and Labs for Last 24 Hours: Temp Pulse Resp BP Pulse Ox 97.7 F 65 20 102/44 L 89 L 05/26/21 07:47 05/26/21 07:47 05/26/21 07:47 05/26/21 07:47 05/26/21 07:47 Laboratory Results - last 24 hr 05/26/21 06:04: C-Reactive Protein 40.8 H, NT-Pro-B Natriuret Pep 1650 H 05/26/21 06:04: Sodium 140, Potassium 3.3 L, Chloride 109 H, Carbon Dioxide 25, Anion Gap 9.3, BUN 16, Creatinine 0.60, Estimated Creat Clear 47, Estimated GFR 97, Est GFR ( Amer) 117, Glucose 96, Calcium 7.4 L, Total Bilirubin 0.5, AST 34, ALT 22, Alkaline Phosphatase 75, Total Protein 5.8 L, Albumin 2.7 L, Globulin 3.1, Albumin/Globulin Ratio 0.9 L 05/26/21 06:04: WBC 13.8 H, RBC 4.32, Hgb 13.4, Hct 39.7, MCV 91.9, MCH 31.1, MCHC 33.9, RDW 13.4, Plt Count 483 H, MPV 9.5, Neut % (Auto) 85.1 H, Lymph % (Auto) 10.1, [place] % (Auto) 4.2, Eos % (Auto) 0.3, Baso % (Auto) 0.3, Neut # (Auto) 11.7 H, Lymph # (Auto) 1.4, [place] # (Auto) 0.6, Eos # (Auto) 0.1, Baso # (Auto) 0.0, Total Counted 100, Neutrophils % (Manual) 87 H, Lymphocytes % (Manual) 12, Monocytes % (Manual) 1 L, Platelet Estimate Slight increase, RBC Morphology Normal I & O for Last 24 hours: Intake & Output 05/23/21 05/24/21 05/25/21 05/26/21 23:59 23:59 23:59 23:59 Intake Total 720 / 720 720 / 720 480 / 480 240 / 240 Output Total 400 / 400 Balance 720 / 720 320 / 320 480 / 480 240 / 240 Weight 65.31 kg 61.598 kg 62.777 kg 63.458 kg Assessment and Plan (1) COVID-19 Status: Acute Category: Medical Code(s): U07.1 - COVID-19 (2) Respiratory failure with hypoxia Status: Acute Qualifiers: Chronicity: acute Qualified Code(s): J96.01 - Acute respiratory failure with hypoxia Category: Medical Code(s): J96.91 - Respiratory failure, unspecified with hypoxia (3) HLD (hyperlipidemia) Status: Chronic Qualifiers: Hyperlipidemia type: mixed hyperlipidemia Qualified Code(s): E78.2 - Mixed hyperlipidemia Category: Medical Code(s): E78.5 - Hyperlipidemia, unspecified (4) HTN (hypertension) Status: Chronic Qualifiers: Hypertension type: primary hypertension Qualified Code(s): I10 - Essential (primary) hypertension Category: Medical Code(s): I10 - Essential (primary) hypertension (5) Tobacco use Status: Chronic Category: Social Hx Code(s): Z72.0 - Tobacco use (6) Pneumonia due to COVID-19 virus Status: Acute Category: Medical Code(s): U07.1 - COVID-19; J12.82 - Pneumonia due to coronavirus disease 2019 The patient's infection will respond to the chosen ABx?: Yes Is the patient receiving the right drug, dose, and route?: Yes Could a more targeted ABx be ordered?: No (NO, AZITH TO FINISH UP 5 DAYS.)
[2021-05-27] VITALS (9 sets, daily range): BP systolic 90–105; BP diastolic 47–63; PULSE 62–88; RESP 18–22; TEMP 36.8–36.9; O2SAT 90–94; BMI 21.9
[2021-05-27 06:34] LABS: Basophils # 0.1 K/mm3 (0-0.2); Basophils % 0.4 % (0.1-2.0); Eosinophils # 0.1 K/mm3 (0.0-0.4); Eosinophils % 0.4 % (0.1-12.0); Hematocrit 41.2 % (37.0-47.0); Hemoglobin 13.8 g/dL (12.2-16.2); Lymphocytes # 1.4 K/mm3 (0.7-4.5); Lymphocytes % 10.3 % (10-50); Mean Corpuscular HGB Conc 33.4 g/dL (31.8-35.4); Mean Corpuscular Volume 92.9 fl (81-99); Mean Platelet Volume 9.2 fl (7.4-10.4); Monocytes # 0.8 K/mm3 (0.1-1.0); Neutrophils # 11.5 K/mm3 (1.8-7.8); Neutrophils % 82.9 % (37.0-80.0); Platelet Count 461 K/mm3 (142-424); Red Blood Count 4.44 M/mm3 (4.20-5.40); Red Cell Distribution Width 12.9 % (11.5-17.5); White Blood Count 13.9 K/mm3 (4.8-10.8)
[2021-05-27 06:54] LABS: Chloride 107 mmol/L (98-107); Potassium 3.5 mmoL/L (3.5-5.1); Sodium 138 mmol/L (136-145)
[2021-05-27 06:57] LABS: Alanine Aminotransferase 20 U/L (12-78); Albumin Level 2.7 g/dl (3.5-5.0); Albumin/Globulin Ratio 0.9 (1.1-1.8); Alkaline Phosphatase 82 U/L (38-126); Anion Gap 8.5 mEq/L (5-15); Aspartate Amino Transferase 42 U/L (14-36); Bilirubin,Total 0.4 mg/dl (0.2-1.3); Blood Urea Nitrogen 20 mg/dl (7-17); Calcium 7.5 mg/dl (8.4-10.2); Carbon Dioxide 26 mmol/L (22.0-30.0); Creatinine Clearance Estimated 46 mL/min (50-200); Estimated Glomerular Filt Rate 97 ml/min (>60); GFR (African American) 117 ML/MIN (>60); Glucose 111 mg/dl (74-100); Total Protein,Serum 5.7 g/dl (6.3-8.2)
--- NOTE | 2021-05-27 09:15 | P.PN_ITS ---
Internal Medicine - PN: Subj *Date: 05/27/21 *Time: 09:15 Interval history: doing better this am but stillon 6l nc- labs stable Exam Vital signs and Labs for Last 24 Hours: Temp Pulse Resp BP Pulse Ox 98.2 F 75 22 104/49 L 94 L 05/27/21 08:00 05/27/21 08:00 05/27/21 08:00 05/27/21 08:00 05/27/21 08:00 Laboratory Results - last 24 hr 05/27/21 05:20: Sodium 138, Potassium 3.5, Chloride 107, Carbon Dioxide 26, Anion Gap 8.5, BUN 20 H, Creatinine 0.60, Estimated Creat Clear 46, Estimated GFR 97, Est GFR ( Amer) 117, Glucose 111 H, Calcium 7.5 L, Total Bilirubin 0.4, AST 42 H, ALT 20, Alkaline Phosphatase 82, Total Protein 5.7 L, Albumin 2.7 L, Globulin 3.0, Albumin/Globulin Ratio 0.9 L 05/27/21 05:20: WBC 13.9 H, RBC 4.44, Hgb 13.8, Hct 41.2, MCV 92.9, MCH 31.0, MCHC 33.4, RDW 12.9, Plt Count 461 H, MPV 9.2, Neut % (Auto) 82.9 H, Lymph % (Auto) 10.3, [place] % (Auto) 6.0, Eos % (Auto) 0.4, Baso % (Auto) 0.4, Neut # (Auto) 11.5 H, Lymph # (Auto) 1.4, [place] # (Auto) 0.8, Eos # (Auto) 0.1, Baso # (Auto) 0.1 I & O for Last 24 hours: Intake & Output 05/24/21 05/25/21 05/26/21 05/27/21 11:59 11:59 11:59 11:59 Intake Total 720 / 720 720 / 720 480 / 480 1760 / 1760 Output Total 400 / 400 2700 / 2700 Balance 320 / 320 720 / 720 480 / 480 -940 / -940 Weight 135 lb 12.8 oz 138 lb 6.4 oz 139 lb 14.4 oz 136 lb 6 oz - Constitutional no acute distress - *Routine HEENT Exam Head: Present: normocephalic Eye: Present: EOMI, PERRL ENT: Present: mucous membranes dry - *Routine Neck Exam Present: supple - *Routine Respiratory Exam Present: CTA bilaterally - *Routine Cardiovascular Exam Present: RRR, murmur - *Routine Abdominal Exam Present: soft - *Routine Extremities Exam Absent: edema - *Routine Skin Exam Present: intact - *Routine Neurological Exam Present: alert, CN II-XII intact - Routine Psychiatric Exam Present: normal affect Assessment and Plan (1) COVID-19 Status: Acute Category: Medical Code(s): U07.1 - COVID-19 (2) Respiratory failure with hypoxia Status: Acute Qualifiers: Chronicity: acute Qualified Code(s): J96.01 - Acute respiratory failure with hypoxia Category: Medical Code(s): J96.91 - Respiratory failure, unspecified with hypoxia (3) HLD (hyperlipidemia) Status: Chronic Qualifiers: Hyperlipidemia type: mixed hyperlipidemia Qualified Code(s): E78.2 - Mixed hyperlipidemia Category: Medical Code(s): E78.5 - Hyperlipidemia, unspecified (4) HTN (hypertension) Status: Chronic Qualifiers: Hypertension type: primary hypertension Qualified Code(s): I10 - Essential (primary) hypertension Category: Medical Code(s): I10 - Essential (primary) hypertension (5) Tobacco use Status: Chronic Category: Social Hx Code(s): Z72.0 - Tobacco use (6) Pneumonia due to COVID-19 virus Status: Acute Category: Medical Code(s): U07.1 - COVID-19; J12.82 - Pneumonia due to coronavirus disease 2019
[2021-05-28] VITALS (10 sets, daily range): BP systolic 92–107; BP diastolic 50–59; PULSE 61–77; RESP 18–20; TEMP 36.4–36.9; O2SAT 93–95; BMI 21.7
[2021-05-28 07:15] LABS: Basophils % 0.3 % (0.1-2.0); Eosinophils % 0.1 % (0.1-12.0); Hematocrit 39.8 % (37.0-47.0); Hemoglobin 13.1 g/dL (12.2-16.2); Lymphocytes # 1.3 K/mm3 (0.7-4.5); Lymphocytes % 9.3 % (10-50); Mean Corpuscular Volume 93.8 fl (81-99); Mean Platelet Volume 9.3 fl (7.4-10.4); Monocytes # 0.8 K/mm3 (0.1-1.0); Monocytes % 5.6 % (1.7-9.3); Neutrophils % 84.7 % (37.0-80.0); Platelet Count 419 K/mm3 (142-424); Red Blood Count 4.24 M/mm3 (4.20-5.40); Red Cell Distribution Width 13.1 % (11.5-17.5); White Blood Count 14.1 K/mm3 (4.8-10.8)
--- NOTE | 2021-05-28 09:47 | XR_ITS ---
PROCEDURE INFORMATION: Exam: XR Chest Exam date and time: 05/28/2021 9:47 AM Age: 75 years old Clinical indication: Shortness of breath; Additional info: Covid-19, SOB TECHNIQUE: Imaging protocol: XR of the chest. Views: 1 view. COMPARISON: CR XR CHEST PORTABLE 05/25/2021 4:49 AM FINDINGS: Lungs: Continued diffuse interstitial opacities bilaterally. Right worse than left. May be edema or pneumonia. Pleural spaces: Unremarkable. No pleural effusion. No pneumothorax. Heart/Mediastinum: Unremarkable. No cardiomegaly. Bones/joints: Unremarkable. IMPRESSION: Continued diffuse interstitial opacities bilaterally. Right worse than left. May be edema or pneumonia.
--- NOTE | 2021-05-28 09:54 | P.PN_ITS ---
Internal Medicine - PN: Subj *Date: 05/28/21 *Time: 09:54 Interval history: doing ok - no specific c/o still on 6l and is oob Exam Vital signs and Labs for Last 24 Hours: Temp Pulse Resp BP Pulse Ox 97.5 F L 64 19 107/53 L 95 05/28/21 08:00 05/28/21 08:00 05/28/21 08:00 05/28/21 08:00 05/28/21 08:00 Laboratory Results - last 24 hr 05/28/21 05:24: WBC 14.1 H, RBC 4.24, Hgb 13.1, Hct 39.8, MCV 93.8, MCH 31.0, MCHC 33.0, RDW 13.1, Plt Count 419, MPV 9.3, Neut % (Auto) 84.7 H, Lymph % (Auto) 9.3 L, [place] % (Auto) 5.6, Eos % (Auto) 0.1, Baso % (Auto) 0.3, Neut # (Auto) 12.0 H, Lymph # (Auto) 1.3, [place] # (Auto) 0.8, Eos # (Auto) 0.0, Baso # (Auto) 0.0 I & O for Last 24 hours: Intake & Output 05/25/21 05/26/21 05/27/21 05/28/21 11:59 11:59 11:59 11:59 Intake Total 720 / 720 480 / 480 1760 / 1760 600 / 600 Output Total 2700 / 2700 300 / 300 Balance 720 / 720 480 / 480 -940 / -940 300 / 300 Weight 138 lb 6.4 oz 139 lb 14.4 oz 136 lb 6 oz 135 lb 5 oz - Constitutional no acute distress, thin - *Routine HEENT Exam Head: Present: normocephalic Eye: Present: EOMI, PERRL ENT: Present: mucous membranes dry - *Routine Neck Exam Absent: JVD - *Routine Respiratory Exam Present: decreased breath sounds - *Routine Cardiovascular Exam Present: RRR, murmur, S4 - *Routine Abdominal Exam Present: soft - *Routine Extremities Exam Absent: calf tenderness - *Routine Skin Exam Present: intact - *Routine Neurological Exam Present: alert, CN II-XII intact - Routine Psychiatric Exam Present: cooperative Assessment and Plan (1) COVID-19 Status: Acute Category: Medical Code(s): U07.1 - COVID-19 (2) Respiratory failure with hypoxia Status: Acute Qualifiers: Chronicity: acute Qualified Code(s): J96.01 - Acute respiratory failure with hypoxia Category: Medical Code(s): J96.91 - Respiratory failure, unspecified with hypoxia (3) HLD (hyperlipidemia) Status: Chronic Qualifiers: Hyperlipidemia type: mixed hyperlipidemia Qualified Code(s): E78.2 - Mixed hyperlipidemia Category: Medical Code(s): E78.5 - Hyperlipidemia, unspecified (4) HTN (hypertension) Status: Chronic Qualifiers: Hypertension type: primary hypertension Qualified Code(s): I10 - Essential (primary) hypertension Category: Medical Code(s): I10 - Essential (primary) hypertension (5) Tobacco use Status: Chronic Category: Social Hx Code(s): Z72.0 - Tobacco use (6) Pneumonia due to COVID-19 virus Status: Acute Category: Medical Code(s): U07.1 - COVID-19; J12.82 - Pneumonia due to coronavirus disease 2019
[2021-05-28 10:34] LABS: Chloride 107 mmol/L (98-107); Potassium 3.8 mmoL/L (3.5-5.1); Sodium 139 mmol/L (136-145)
[2021-05-28 10:36] LABS: Alanine Aminotransferase 18 U/L (12-78); Aspartate Amino Transferase 57 U/L (14-36); Blood Urea Nitrogen 20 mg/dl (7-17); Creatinine Clearance Estimated 46 mL/min (50-200); Estimated Glomerular Filt Rate 97 ml/min (>60); GFR (African American) 117 ML/MIN (>60)
[2021-05-28 10:37] LABS: Albumin Level 2.6 g/dl (3.5-5.0); Albumin/Globulin Ratio 0.9 (1.1-1.8); Alkaline Phosphatase 76 U/L (38-126); Anion Gap 9.8 mEq/L (5-15); Bilirubin,Total 0.2 mg/dl (0.2-1.3); Calcium 7.4 mg/dl (8.4-10.2); Carbon Dioxide 26 mmol/L (22.0-30.0); Globulin 2.9 g/dL (1.3-3.2); Glucose 140 mg/dl (74-100); Total Protein,Serum 5.5 g/dl (6.3-8.2)
--- NOTE | 2021-05-28 10:37 | HMH.PHAINT ---
Dr. Soto called to have pharmacy start the following medications from the Covid order set....Lovenox, pepcid, vitamin D, remdesivir x 5 more days.
--- NOTE | 2021-05-28 18:02 | PC.NURSE ---
pt has done well this shift. got up to chair and is tolerating 4lnc well
[2021-05-29] VITALS (10 sets, daily range): BP systolic 81–120; BP diastolic 44–63; PULSE 54–83; RESP 18–20; TEMP 36.4–37; O2SAT 91–95; BMI 22.5
[2021-05-29 06:17] LABS: Basophils # 0.1 K/mm3 (0-0.2); Basophils % 0.4 % (0.1-2.0); Eosinophils # 0.1 K/mm3 (0.0-0.4); Eosinophils % 0.6 % (0.1-12.0); Hematocrit 40.5 % (37.0-47.0); Hemoglobin 13.2 g/dL (12.2-16.2); Lymphocytes # 1.5 K/mm3 (0.7-4.5); Lymphocytes % 10.6 % (10-50); Mean Corpuscular HGB Conc 32.6 g/dL (31.8-35.4); Mean Corpuscular Hemoglobin 30.9 pg (27.0-31.2); Mean Corpuscular Volume 94.7 fl (81-99); Mean Platelet Volume 9.1 fl (7.4-10.4); Monocytes # 0.7 K/mm3 (0.1-1.0); Monocytes % 5.2 % (1.7-9.3); Neutrophils # 11.6 K/mm3 (1.8-7.8); Neutrophils % 83.2 % (37.0-80.0); Platelet Count 443 K/mm3 (142-424); Red Blood Count 4.28 M/mm3 (4.20-5.40); Red Cell Distribution Width 12.9 % (11.5-17.5)
[2021-05-29 06:41] LABS: Chloride 108 mmol/L (98-107)
[2021-05-29 06:42] LABS: Potassium 3.8 mmoL/L (3.5-5.1); Sodium 139 mmol/L (136-145)
[2021-05-29 06:44] LABS: Alanine Aminotransferase 18 U/L (12-78); Aspartate Amino Transferase 24 U/L (14-36); Bilirubin,Total 0.5 mg/dl (0.2-1.3); Blood Urea Nitrogen 19 mg/dl (7-17); Creatinine Clearance Estimated 47 mL/min (50-200); Estimated Glomerular Filt Rate 97 ml/min (>60); GFR (African American) 117 ML/MIN (>60)
[2021-05-29 06:45] LABS: Albumin Level 2.6 g/dl (3.5-5.0); Albumin/Globulin Ratio 0.9 (1.1-1.8); Alkaline Phosphatase 65 U/L (38-126); Anion Gap 8.8 mEq/L (5-15); Calcium 7.5 mg/dl (8.4-10.2); Carbon Dioxide 26 mmol/L (22.0-30.0); Glucose 128 mg/dl (74-100); Magnesium 1.9 mg/dl (1.6-2.3); Total Protein,Serum 5.6 g/dl (6.3-8.2)
--- NOTE | 2021-05-29 08:00 | CA_ITS ---
APPROVED REPORT EXAM: Comprehensive 2D, Doppler, and color-flow Echocardiogram Building Admin: Teresa Manzo RVT Ht: 5 ft 6 in Wt: 135lbs BSA: 1.69 BP: 120/63 mmHg Indications: COVID PNEUMONIA,CHF,CAD,MURMUR,SOA,HTN,HLD,HX THORACIC AA 2D Dimensions LVOT 2.14 cm (M/F) 1.5-2.5 LA Volume 29.90 mL LA Volume Index 17.69 mL/m2 (M/F) 16-34 M-Mode Dimensions RVDd 2.69 cm (0.9-2.6) LA Diam 3.97 cm (1.9-4.0) LVDd 4.61 cm (3.5-5.7) Ao Diam 3.12 cm (2.0-3.7) LVDs 3.25 cm (3.5-5.7) IVSd 0.76 cm (0.6-1.1) PWd 0.68 cm (0.6-1.1) EF (Teich) 56.50% FS 29.50% EDV (Teich) 97.80 mL TAPSE 2.12 (<1.7) ESV (Teich) 42.50 mL LV Diastology E Decel Time 300.00 (160-240 msec) E/A Ratio 0.8 MED E' 5.80 (< 7 cm/sec) E'/MED E' Ratio 18.09 (>14) LAT E' 10.70 (<10 cm/sec) E/LAT E' Ratio 9.80 (>14) Aortic Valve AI PHT 1678.00 ms Mitral Valve MV E Max Jeffrey. 105.00 (40-130 cm/s) MV A Velocity 132.00 (40-130 cm/s) E/A Ratio 0.79 MV Decel. Time 300.00 (160-240 ms) MV PHT 88.00 ms Pulmonary Valve PV Peak Velocity 86.00 (50-150 cm/s) Tricuspid Valve TR P. Velocity 269.00 cm/s RAP Estimate 10.00 mmHg RVSP 38.90 mmHg Left Ventricle Left atrium is mildly enlarged, left ventricle is normal size, mild concentric left ventricular hypertrophy, visually estimated ejection fraction 55% with no regional wall motion abnormality, grade 1 diastolic dysfunction seen with tissue Doppler evidence of raise left atrial pressure. Right Ventricle Right atrium and right ventricle mildly enlarged with normal contractility. Aortic Valve Aortic valve is thickened and calcified without Doppler evidence of aortic stenosis, there is mild aortic insufficiency. Mitral Valve Mitral valve leaflets are minimally thickened, there is mild mitral regurgitation. Tricuspid Valve Tricuspid valve is grossly normal, there is mild tricuspid regurgitation, calculated right ventricular systolic pressure 38 mmHg. Pulmonic Valve Pulmonic valve is poorly visualized. Great Vessels Aortic root is normal size. Inferior vena cava is normal size with normal inspiratory collapse. Pericardium No significant pericardial effusion noted. Conclusion 1. Mild biatrial enlargement, normal left ventricular size, mild concentric left ventricular hypertrophy, visually estimated ejection fraction 55% with no regional wall motion abnormality, grade 1 diastolic dysfunction seen with tissue Doppler evidence of raise left atrial pressure. 2. Mildly enlarged right ventricle with normal contractility. 3. Thickened and calcified aortic valve without Doppler evidence of aortic stenosis, there is mild aortic insufficiency. 4. Mild mitral and tricuspid regurgitation, calculated right ventricular systolic pressure 38 mmHg. 5. Inferior vena cava normal size with normal inspiratory collapse. Electronically signed by : Melvin Ibarra MD 05/29/2021 19:20:05
--- NOTE | 2021-05-29 09:33 | HMH.ACPN2 ---
Internal Medicine - PN: Subj *Date: 05/29/21 *Time: 09:33 Interval history: looks better - no specific c/o laabs ok and cxr still with abn - Exam Vital signs and Labs for Last 24 Hours: Temp Pulse Resp BP Pulse Ox 97.5 F L 64 20 81/44 L 93 L 05/29/21 08:00 05/29/21 08:00 05/29/21 08:00 05/29/21 08:00 05/29/21 08:00 Laboratory Results - last 24 hr 05/28/21 05:24: Sodium 139, Potassium 3.8, Chloride 107, Carbon Dioxide 26, Anion Gap 9.8, BUN 20 H, Creatinine 0.60, Estimated Creat Clear 46, Estimated GFR 97, Est GFR ( Amer) 117, Glucose 140 H, Calcium 7.4 L, Total Bilirubin 0.2, AST 57 H D, ALT 18, Alkaline Phosphatase 76, Total Protein 5.5 L, Albumin 2.6 L, Globulin 2.9, Albumin/Globulin Ratio 0.9 L 05/29/21 05:50: WBC 14.0 H, RBC 4.28, Hgb 13.2, Hct 40.5, MCV 94.7, MCH 30.9, MCHC 32.6, RDW 12.9, Plt Count 443 H, MPV 9.1, Neut % (Auto) 83.2 H, Lymph % (Auto) 10.6, [place] % (Auto) 5.2, Eos % (Auto) 0.6, Baso % (Auto) 0.4, Neut # (Auto) 11.6 H, Lymph # (Auto) 1.5, [place] # (Auto) 0.7, Eos # (Auto) 0.1, Baso # (Auto) 0.1 05/29/21 05:50: Sodium 139, Potassium 3.8, Chloride 108 H, Carbon Dioxide 26, Anion Gap 8.8, BUN 19 H, Creatinine 0.60, Estimated Creat Clear 47, Estimated GFR 97, Est GFR ( Amer) 117, Glucose 128 H, Calcium 7.5 L, Magnesium 1.9, Total Bilirubin 0.5, AST 24 D, ALT 18, Alkaline Phosphatase 65, Total Protein 5.6 L, Albumin 2.6 L, Globulin 3.0, Albumin/Globulin Ratio 0.9 L I & O for Last 24 hours: Intake & Output 05/26/21 05/27/21 05/28/21 05/29/21 11:59 11:59 11:59 11:59 Intake Total 480 / 480 1760 / 1760 600 / 600 600 / 600 Output Total 2700 / 2700 300 / 300 550 / 550 Balance 480 / 480 -940 / -940 300 / 300 50 / 50 Weight 139 lb 14.4 oz 136 lb 6 oz 135 lb 5 oz 140 lb - Constitutional no acute distress - *Routine HEENT Exam Head: Present: normocephalic Eye: Present: EOMI, PERRL ENT: Present: mucous membranes dry - *Routine Neck Exam Absent: JVD - *Routine Respiratory Exam Present: decreased breath sounds, wheezes - *Routine Cardiovascular Exam Present: RRR - *Routine Abdominal Exam Present: soft - *Routine Extremities Exam Absent: calf tenderness - *Routine Skin Exam Present: intact - *Routine Neurological Exam Present: alert, oriented X3, CN II-XII intact - Routine Psychiatric Exam Present: cooperative Assessment and Plan (1) COVID-19 Status: Acute Category: Medical Code(s): U07.1 - COVID-19 (2) Respiratory failure with hypoxia Status: Acute Qualifiers: Chronicity: acute Qualified Code(s): J96.01 - Acute respiratory failure with hypoxia Category: Medical Code(s): J96.91 - Respiratory failure, unspecified with hypoxia (3) HLD (hyperlipidemia) Status: Chronic Qualifiers: Hyperlipidemia type: mixed hyperlipidemia Qualified Code(s): E78.2 - Mixed hyperlipidemia Category: Medical Code(s): E78.5 - Hyperlipidemia, unspecified (4) HTN (hypertension) Status: Chronic Qualifiers: Hypertension type: primary hypertension Qualified Code(s): I10 - Essential (primary) hypertension Category: Medical Code(s): I10 - Essential (primary) hypertension (5) Tobacco use Status: Chronic Category: Social Hx Code(s): Z72.0 - Tobacco use (6) Pneumonia due to COVID-19 virus Status: Acute Category: Medical Code(s): U07.1 - COVID-19; J12.82 - Pneumonia due to coronavirus disease 2019
--- NOTE | 2021-05-29 12:28 | HMH.PULMPN ---
Internal Medicine - PN: Subj *Date: 05/29/21 *Time: 12:28 Interval history: No acute respiratory events in the last 48 hours. Patient admits continued improvement in her symptoms. Exam - Constitutional Constitutional:: Present: no acute distress, comfortable - HENMT Exam HENMT: Present: normocephalic - Eye Exam Eyes:: Present: eye discharge - Neck Exam Neck:: Present: normal visual inspection - Respiratory Exam Respiratory:: Present: able to speak in complete sentences, no respiratory distress, crackles. Absent: wheezing - Cardiovascular Exam Cardiac:: Present: S1, S2 - GI Exam GI:: Present: soft - Skin Exam Skin: Present: warm, no rash - Neurological Exam Neurological: Present: alert, awake, normal cognition - Extremities Exam Extremities: Present: no cyanosis, no clubbing, no edema Assessment and Plan (1) COVID-19 Status: Acute Category: Medical Code(s): U07.1 - COVID-19 (2) Respiratory failure with hypoxia Status: Acute Qualifiers: Chronicity: acute Qualified Code(s): J96.01 - Acute respiratory failure with hypoxia Category: Medical Code(s): J96.91 - Respiratory failure, unspecified with hypoxia (3) HLD (hyperlipidemia) Status: Chronic Qualifiers: Hyperlipidemia type: mixed hyperlipidemia Qualified Code(s): E78.2 - Mixed hyperlipidemia Category: Medical Code(s): E78.5 - Hyperlipidemia, unspecified (4) HTN (hypertension) Status: Chronic Qualifiers: Hypertension type: primary hypertension Qualified Code(s): I10 - Essential (primary) hypertension Category: Medical Code(s): I10 - Essential (primary) hypertension (5) Tobacco use Status: Chronic Category: Social Hx Code(s): Z72.0 - Tobacco use (6) Pneumonia due to COVID-19 virus Status: Acute Category: Medical Code(s): U07.1 - COVID-19; J12.82 - Pneumonia due to coronavirus disease 2019 - Assessment and plan all Dx Assessment and Plan for all problems:: #COVID-19 pneumonia: #Acute hypoxic respiratory failure: 75-year-old current smoker greater than [id number] smoking history, baseline respiratory symptoms. Not on any inhalers. Yet to be vaccinated. Initial positive diagnosis of COVID-19 pneumonia from 05/16/2021. received levofloxacin and prednisone as outpatient. Continued worsening respiratory symptoms. Afebrile. No evidence of leukocytosis. CTA did not show any obvious evidence of acute pulmonary embolism however showed bilateral emphysematous changes with airspace disease/groundglass opacities. D-dimer 0.95. CRP 59.8. Interval update: Patient respiratory status continued to improve along with CRP. She was weaned to 3 L nasal cannula today. She completed 5 days of remdesivir along with ceftriaxone and azithromycin. Nasal MRSA PCR still on collected. She continued to receive 20 mg of oral Lasix daily and she received additional 40 IV on Saturday. Plan: Continue proning protocol DuoNebs every 6 hours scheduled along with budesonide every 12 hrs, recommend discharging the patient on triple inhaler therapy Dexamethasone 6 mg daily for total of 10 days Continue oxygen supplementation, wean as tolerated with O2 saturation goal of 88 and above. Patient might need home oxygen therapy set up prior to discharge. #Thank you for involving pulmonary in this patient care. We will follow the patient in pulmonary clinic in 4 weeks with a 6-minute walk testing and full PFT.
--- NOTE | 2021-05-29 12:51 | SW/DCPLANNER ---
Addendum entered by [employer] 05/29/21 13:32: Lucille yeh/ Akbar has stated that portable O2 tank will delivered. Original Note: Patient information/order will be faxed to [facility] for home O2 + portable. Patient could discharge later today. I will follow up with [facility] once patient information is reviewed.
--- NOTE | 2021-05-29 14:51 | HMH.DCSUM ---
General - General Admission date:: 05/23/21 Discharge date: 05/29/21 HPI HPI: 75-year-old female patient presented to the emergency department with shortness of breath and thin white productive cough for 8 days. She also reports body aches. She checked positive for COVID-19 on 05/16/2021 and received Levaquin and prednisone by her primary care physician. Since then she has had increasing dyspnea beginning dyspnea upon walking and now dyspnea at rest. She reports feeling lightheaded when standing she denies any falls and reports her cough is worse at night. She denies any chest pain. She was not vaccinated. She received the infusion. She did receive Levaquin 750 IV in ED. 05/23/21 CXR: IMPRESSION: 1. Multilobar pneumonia in the peripheral right lung. 2. COPD. Electronically signed by Kael Quesada MD 05/23/21 Chest CTA: IMPRESSION: 1. No large or central pulmonary embolus. Probable artifact or chronic nonocclusive embolus in a subsegmental branch of the right lower lobe superior segment. Acute pulmonary embolus thought to be less likely based on this appearance. 2. Multifocal pneumonia, compatible with reported history of COVID-19. 3. COPD. 4. Aneurysmal dilation of the ascending thoracic aorta, measuring up to 4.4 cm in caliber, unchanged since 12/16/2020. 5. Small hiatal hernia. Esophageal wall thickening may reflect esophagitis, but is not fully characterized on CT. Electronically signed by Kael Quesada MD 75-year-old female patient sitting up in bed resting quietly she reports she feels a little better today than yesterday. Oxygen saturation 91% on high flow nasal cannula. She denies any chest pain, pulmonology consult Hospital Course Hospital Course: Laboratory Tests 05/22/21 05/23/21 05/23/21 23:45 00:00 00:09 WBC 8.4 RBC 4.98 Hgb 15.7 Hct 45.1 MCV 90.7 MCH 31.6 H MCHC 34.8 RDW 13.3 Plt Count 369 MPV 9.4 Neut % (Auto) 85.6 H Lymph % (Auto) 8.2 L [place] % (Auto) 5.0 Eos % (Auto) 0.1 Baso % (Auto) 1.2 Neut # (Auto) 7.1 Lymph # (Auto) 0.7 [place] # (Auto) 0.4 Eos # (Auto) 0.0 Baso # (Auto) 0.1 Total Counted 100 Neutrophils % (Manual) 86 H Lymphocytes % (Manual) 10 Monocytes % (Manual) 4 Platelet Estimate Normal RBC Morphology Normal D-Dimer VBG pH 7.44 H VBG pCO2 33.0 L VBG pO2 72.4 H VBG HCO3 21.9 L VBG Total CO2 22.9 L VBG O2 Saturation 94.5 H VBG Base Excess -2.3 Sodium Potassium Chloride Carbon Dioxide Anion Gap BUN Creatinine Estimated Creat Clear Estimated GFR Est GFR ( Amer) Glucose Lactate Calcium Magnesium Ferritin Total Bilirubin AST ALT Alkaline Phosphatase C-Reactive Protein NT-Pro-B Natriuret Pep Total Protein Albumin Globulin Albumin/Globulin Ratio Procalcitonin SARS-CoV-2 (PCR) Detected A Influenza A Untype (PCR) Not detected Influenza Type B (PCR) Not detected 05/23/21 05/23/21 05/23/21 00:09 00:09 03:25 WBC RBC Hgb Hct MCV MCH MCHC RDW Plt Count MPV Neut % (Auto) Lymph % (Auto) [place] % (Auto) Eos % (Auto) Baso % (Auto) Neut # (Auto) Lymph # (Auto) [place] # (Auto) Eos # (Auto) Baso # (Auto) Total Counted Neutrophils % (Manual) Lymphocytes % (Manual) Monocytes % (Manual) Platelet Estimate RBC Morphology D-Dimer 0.95 H VBG pH VBG pCO2 VBG pO2 VBG HCO3 VBG Total CO2 VBG O2 Saturation VBG Base Excess Sodium 134 L Potassium 3.7 Chloride 103 Carbon Dioxide 28 Anion Gap 6.7 BUN 17 Creatinine 0.60 Estimated Creat Clear 49 Estimated GFR 97 Est GFR ( Amer) 117 Glucose 226 H Lactate 1.8 Calcium 8.2 L Magnesium Ferritin 504 H Total Bilirubin 0.8 AST 54 H ALT
--- NOTE | 2021-05-29 15:18 | PC.NURSE ---
Addendum entered by Rika Felipe RN 05/29/21 16:39: PT WILL BE DISCHARGED HOME. PT WAS INSTRUCTED TO CALL [facility] WHEN THEY WERE ON THEIR WAY HOME TO BRING HOME OXYGEN. PT HAS FOLLOW UP APPOINTMENTS WITH AND . PT WAS GIVEN AN OUTPATIENT ORDER FORM FOR A PFT AND RT 6 MIN WALK TEST SCHEDULED ON 06/14. PT WAS INSTRUCTED TO STOP AT [facility] TO [facility] FEEDER PRESCRIPTIONS. Original Note: PT IS SITTING UP IN THE BED TALKING ON THE PHONE WITH FAMILY AT THIS TIME. ALERT AND ORIENTED X4. PT STATES SHE FEELS BETTER AND IS REALLY WANTING TO GO HOME. O2 SATURATION HAS MAINTAINED 91-93% ON ROOM AIR FOR THE LAST 2 HOURS. PT TOLERATED BATH THIS SHIFT WITH MINIMAL ASSISTANCE. PORTABLE OXYGEN HAS BEEN DELIVERED. LUNG SOUNDS DIMINISHED. ABDOMEN SOFT/NON TENDER WITH ACTIVE BOWEL SOUNDS. EATING AND DRINKING WELL. BP HAS BEEN LOW BUT ACCORDING TO PT THAT IS HER NORMAL. PT HAS BEEN UNABLE TO PRODUCE SPUTUM. WILL CONTINUE TO MONITOR.
== END 2021-05-29 17:13 | disposition home or self-care (01) | DRG 177 ==
LOC: ER 23:54 → 2ND 05-23 03:05 → ICU 05-28 20:15
PROVIDERS: Internal Medicine Pulmonary Disease; Nurse Practitioner Family; Admitting Provider Family Medicine; Emergency Provider Emergency Medicine; PCP Emergency Medicine; Visit Provider Emergency Medicine
DX: U07.1 COVID-19 (principal); J12.82 Pneumonia due to coronavirus disease 2019; J96.01 Acute respiratory failure with hypoxia; F17.210 Nicotine dependence, cigarettes, uncomplicated; I71.4 Abdominal aortic aneurysm, without rupture; I11.0 Hypertensive heart disease with heart failure; I50.9 Heart failure, unspecified
CPT/HCPCS: 36415; 71045; 71275; 80048; 80053; 82728; 82803; 83605; 83735; 83880; 84145; 85007; 85025; 85378; 86140; 87081; 93306; 93970; 94640; 94760; 94761; 96365; 96366; 99284; C9803; J0456; J1956; Q9967; U0003; U0005

== ENCOUNTER → 2021-07-17 14:54 | Outpatient (CLI) | payer MEDICARE, SELFPAY ==
[2021-07-17 15:30] VITALS: PULSE 80; PULSE 88
== END ==
PROVIDERS: PCP Emergency Medicine; Visit Provider Internal Medicine Pulmonary Disease
DX: U07.1 COVID-19 (principal)
CPT/HCPCS: 94060; 94618; 94640; 94727; 94729

== ENCOUNTER 2021-12-04 16:19 | Emergency (ER) | payer MEDICARE, SELFPAY ==
--- NOTE | 2021-12-04 16:39 | XR_ITS ---
PROCEDURE INFORMATION: Exam: XR Right Hip Exam date and time: 12/04/2021 4:46 PM Age: 76 years old Clinical indication: Injury or trauma; Fall; Blunt trauma (contusions or hematomas); Right; Hip; Injury date: 11/23/2021 TECHNIQUE: Imaging protocol: Radiologic exam of the Right hip. Views: 2 or 3 views hip with pelvis when performed. COMPARISON: PELWO CT PELVIS W/O CONTRAST 06/13/2016 10:00 AM FINDINGS: Bones/joints: Suspected acute nondisplaced fracture of the right inferior pubic ramus. Associated fracture of the superior and this is expected but not definitely localized. 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 Soft tissues: Unremarkable. IMPRESSION: 1. Suspect acute nondisplaced fracture of the right inferior pubic ramus. Associated fracture of the superior ramus is expected but not definitely localized. 2. Chronic insufficiency fracture right sacral ala.
[2021-12-04 18:00] VITALS: BP 102/53; PULSE 69; RESP 22; TEMP 36.7; O2SAT 98; BMI 20.7
--- NOTE | 2021-12-04 18:30 | HMH.EDUTC ---
[facility] [place] Clinical Impression: Pubic ramus fracture Qualifiers: Encounter type: initial encounter Fracture type: closed Laterality: right Qualified Code(s): S32.591A - Other specified fracture of right pubis, initial encounter for closed fracture Disposition: Home, Self-Care Condition on Discharge: Good Instructions: DI for Pelvic Fracture, How to Choose and Use a Walker Additional Instructions: *Use walker to help with walking *RICE, Rest the extremity, Ice 15-20 minutes 3-4 times daily, Compress- wear the jhoan wrap as discussed as much as possible to help reduce swelling and pain, Elevate the extremity when at rest *Elevate when resting *Ibuprofen as directed on package every 6-8 hours as needed for pain an inflammation. if your doctor has told you that you can take it If need something more can take Tylenol in between doses of Ibuprofen to help Immediately follow up with your family doctor for new or worsening of symptoms, or no noticeable improvement over the next 3-5 days Call Orthopedic office in the morning for appointment Return if needed Straight to ER if any life threatening symptoms Referrals: Yobany Soto MD [Primary Care Provider] - As needed Orlando Mayen MD [Staff Physician] - (Call tomorrow for appointment) Time of Disposition: 18:46 Medical Decision Making - Junior Inquiry Pt receiving controlled substance: No Junior was queried for this patient: No Vital Signs: 12/04/21 18:00 Temperature 98.1 F Temperature Source Oral Pulse Rate [Left Brachial] 69 Respiratory Rate 22 Blood Pressure [Left Arm] 102/53 L Blood Pressure Mean [Left Arm] 69 Blood Pressure Source [Left Arm] Automatic Cuff Blood Pressure Position [Left Arm] Sitting 02 Sat by Pulse Oximetry 98 Oxygen Delivery Method Room Air - Radiology Data #1 Image(s): Hip (right hip with pelvis) Image Reviewed: Yes I have reviewed radiologist's interpretation IMPRESSION: 1. Suspect acute nondisplaced fracture of the right inferior pubic ramus. Associated fracture of the superior ramus is expected but not definitely localized. 2. Chronic insufficiency fracture right sacral ala. - Physician Consults Physician Consulted: Dr Mayen Time: 17:45 Reason -: Orthopedic Eval/Care Comment/Response: Spoke with Dr Mayen about xray finding he advise weight bearing with assistance of walker or cane which ever she prefers some walking with comfort and call office in the morning for appointment Medical Decision Narrative: Patient states that she has a walker and ibuprofen at home [facility] [place] HPI - General Stated complaint: AO6/16 Pain in groin Time Seen by Provider: 12/04/21 18:30 Mode of Arrival: Ambulatory Source of Information: Patient Limitations: No Limitations Description of Symptoms (Recalled from Triage Doc. by RN): PATIENT STATES THAT APPROX 1 WEEK AGO SHE FELL ON THE DECK AND HIT HER RIGHT BUTTOCK AREA ON THE CORNER OF THE DECK. C/O PAIN TO RIGHT GROIN AREA SINCE THE FALL HEENT Symptoms (Recalled from RN notes): No Resp Symptoms (Recalled from RN notes): No Skin Symptoms (Recalled from RN notes): No MS Symptoms (Recalled from RN notes): Yes Functional Status (Recalled from RN notes): WNL - History of Present Illness Provider Complaint: Patient states that she was carring some bags and went to step up on her deck about a week ago and it had been raining when her feet slipped and she fell landing on a board with her right butt cheek area States that ever since she has been having pain in her right groin area when she walks or gets up States that she has been up walking around on it but today her family wanted her to come in and get it checked - Related Data Home Medications Medication Instructions Recorded Confirmed Aspirin [Low Dose Aspirin EC] 81 mg PO DAILY 05/23/21 07/07/21 Furosemide [Furosemide 20mg Tab*] 20 mg PO DAILY 05/23/21 07/07/21 Previous Rx's Medication Instructions Recorded Benzonatate [Benzonat
[2021-12-04 18:48] VITALS: BP 102/53; PULSE 69; RESP 22; TEMP 36.7; O2SAT 98
== END 2021-12-04 18:53 | disposition home or self-care (01) ==
PROVIDERS: Emergency Provider Nurse Practitioner; PCP Emergency Medicine
DX: S32.591A Other specified fracture of right pubis, initial encounter for closed fracture (principal); I11.0 Hypertensive heart disease with heart failure; I50.9 Heart failure, unspecified; R01.1 Cardiac murmur, unspecified; I25.10 Atherosclerotic heart disease of native coronary artery without angina pectoris; E78.5 Hyperlipidemia, unspecified; F17.210 Nicotine dependence, cigarettes, uncomplicated; Z79.1 Long term (current) use of non-steroidal anti-inflammatories (NSAID); Z79.82 Long term (current) use of aspirin; Z79.899 Other long term (current) drug therapy; Z86.79 Personal history of other diseases of the circulatory system
CPT/HCPCS: 73502; 99213; G0463

== ENCOUNTER → 2022-01-02 13:08 | Outpatient (CLI) | payer MEDICARE, SELFPAY ==
[2022-01-02 13:39] LABS: Blood Urea Nitrogen 15 mg/dl (7-17); Estimated Glomerular Filt Rate 69 ml/min (>60); GFR (African American) 84 ML/MIN (>60)
--- NOTE | 2022-01-02 13:47 | CT_ITS ---
FINAL REPORT CLINICAL HISTORY: AAA FINDINGS: Thin section axial CT images of the chest were obtained with contrast. 3D reformatted images were also obtained. This study was performed with techniques to keep radiation doses as low as reasonably achievable (ALARA). Individualized dose reduction techniques using automated exposure control or adjustment of mA and/or kV according to the patient's size were employed. There is no evidence of pulmonary embolism. There is a 4.3 cm ascending aortic aneurysm. There is no evidence of dissection. There is no evidence of mediastinal or hilar mass or adenopathy. There is no evidence of pulmonary mass or nodule. No localized inflammatory process is seen within the lungs. There is moderate emphysema and mild scarring. IMPRESSION: No evidence of pulmonary embolism. Ascending aortic aneurysm. Reviewed, Interpreted and Dictated by Yang Nice III, MD Transcribed by Melanie Suresh Authenticated and [facility]
== END ==
LOC: RAD 13:09
PROVIDERS: PCP Emergency Medicine; Visit Provider Thoracic Surgery (Cardiothoracic Vascular Surgery)
DX: I71.2 Thoracic aortic aneurysm, without rupture (principal)
CPT/HCPCS: 36415; 71275; 82565; 84520; Q9967

== ENCOUNTER → 2022-10-18 10:07 | Outpatient (CLI) | payer MEDICARE, SELFPAY | LOC: RT 10:08 | PROVIDERS: PCP Emergency Medicine; Visit Provider Nurse Practitioner | DX: E78.2 Mixed hyperlipidemia (principal); I10 Essential (primary) hypertension; I25.10 Atherosclerotic heart disease of native coronary artery without angina pectoris; R00.2 Palpitations; R94.31 Abnormal electrocardiogram [ECG] [EKG]; Z72.0 Tobacco use; I71.20 Thoracic aortic aneurysm, without rupture, unspecified | CPT/HCPCS: 93270 ==

== ENCOUNTER → 2022-11-07 12:55 | Outpatient (CLI) | payer MEDICARE, SELFPAY | PROVIDERS: PCP Emergency Medicine; Visit Provider Nurse Practitioner | DX: E78.2 Mixed hyperlipidemia (principal); I10 Essential (primary) hypertension; I25.10 Atherosclerotic heart disease of native coronary artery without angina pectoris; R00.2 Palpitations; R94.31 Abnormal electrocardiogram [ECG] [EKG]; Z72.0 Tobacco use; I71.20 Thoracic aortic aneurysm, without rupture, unspecified | CPT/HCPCS: 93306 ==

== ENCOUNTER → 2023-03-06 14:36 | Outpatient (CLI) | payer MEDICARE, SELFPAY ==
[2023-03-06 15:36] LABS: Blood Urea Nitrogen 24 mg/dl (7-17); Estimated Glomerular Filt Rate 53 ml/min (>60); GFR (African American) 65 ML/MIN (>60)
== END ==
PROVIDERS: PCP Emergency Medicine; Visit Provider Emergency Medicine
DX: I71.00 Dissection of unspecified site of aorta (principal)
CPT/HCPCS: 36415; 82565; 84520

== ENCOUNTER → 2023-03-07 12:45 | Outpatient (CLI) | payer MEDICARE, SELFPAY ==
--- NOTE | 2023-03-07 12:55 | CT_ITS ---
FINAL REPORT TECHNIQUE: The patient was injected with IV contrast. Axial images were obtained through the chest in a PE protocol. 3-D reconstruction images were also performed. Individualized dose reduction techniques using automated exposure control or adjustment of the MA and/or KV according to patient's size were employed. CLINICAL HISTORY: aortic aneurysm COMPARISON: 12/23/2021 FINDINGS: Mediastinal vasculature is adequately opacified. No pulmonary artery filling defects are identified to suggest PE. There is no aortic dissection. There is an a sending thoracic aneurysm, noted on the prior exam of December 2021, measuring 4.5 cm in diameter. Moderate changes of centrilobular emphysema remain present. Scarring is once again noted in the lung bases. There is no axillary adenopathy. There is no hilar or mediastinal adenopathy. The heart size is normal. There is no pericardial or pleural effusion. Limited images of the upper abdomen are unremarkable. No suspicious infiltrate or nodule is identified. IMPRESSION: No pulmonary embolus or dissection. 4.5 cm ascending thoracic aortic aneurysm, minimally increased in size since the prior exam of December 2021, when it measured 4.3 cm. Reviewed, Interpreted and Dictated by Kwame Burrows MD Transcribed by Rosy Roach Authenticated and [facility]
== END ==
LOC: RAD 12:47
PROVIDERS: PCP Emergency Medicine; Visit Provider Emergency Medicine
DX: I72.8 Aneurysm of other specified arteries (principal)
CPT/HCPCS: 71275; Q9967